=== PATIENT | female | born 1975 | race Caucasian/White ===

== ENCOUNTER 2017-03-03 22:36 | Observation (INO) | payer SELFPAY ==
[~2017-03-03] VITALS: Ht 162.6 cm; Wt 80.0 kg
[~2017-03-03 22:36] MED LIST: BACT800T5 PO; OMEP20TA PO; [UNRECOGNIZED DRUG - CODE] PO
[2017-03-03 22:38] VITALS: BP 216/101; PULSE 129; RESP 16; TEMP 98.7; O2SAT 100
[2017-03-03] MEDS ORDERED: SODIUM CHLORIDE 0.9% FLUSH 10 ML FLUSH IVF PRN (22:45)
--- NOTE | 2017-03-03 22:45 | PD ---
Physical Exam Date Seen by Provider: Mar 03, 2017 Time Seen by Provider: 22:42 Narrative 41 y/o female with chest pain radiating to shoulders and jaw for a few days to a week. Symptoms intermittent and lasts 10 minutes then goes away. Not related to exertion. Also feels jittery. Patient not eating, has been sweating alot and having diarrhea. Ran out of her Clonidine yesterday. Also feels jittery. Vital Signs reviewed. Patient is Stable and awaiting Bed Placement. Data Data Last Documented VS Vital Signs Date Time Temp Pulse Resp B/P (MAP) Pulse Ox O2 Delivery O2 Flow Rate FiO2 03/03/17 22:38 98.7 129 16 216/101 (139) 100 MDM Medical Record Reviewed: Yes Supervised Visit with VICKY: Yes Condition: Stable Jeremy Kang Mar 03, 2017 22:45
[2017-03-03] MEDS ORDERED: VIST50CA PO (22:59)
[2017-03-03] MEDS ORDERED: CLON0.2T PO (22:59)
[2017-03-03] MEDS ORDERED: SODIUM CHLOR 0.9% 1000 ML INJ 1,000 ML IV ONE (23:15)
--- NOTE | 2017-03-03 23:20 | RADRPT ---
EXAM DATE/TIME: 03/03/2017 22:49 [facility] COMPARISON: No previous studies available for comparison. INDICATIONS : Chest pain MEDICAL HISTORY : Hypertension. Gastroesophageal reflux disease. Renal calculi.Deep vein thrombosis. SURGICAL HISTORY : Cholecystectomy ENCOUNTER: Initial ACUITY: 2 days PAIN SCORE: 5/10 LOCATION: chest FINDINGS: A single view of the chest demonstrates the lungs to be symmetrically aerated without evidence of mas s, infiltrate or effusion. The cardiomediastinal contours are unremarkable. Osseous structures are intact. CONCLUSION: No acute disease. Juma Bautista MD on March 03, 2017 at 23:18 Board Certified Radiologist. This report was verified electronically.
[2017-03-03 23:25] LABS: AUTOMATED NEUTROPHIL # 7.4 TH/MM3 (1.8-7.7); BASOPHIL # 0.2 TH/MM3 (0-0.2); BASOPHIL % 1.4 % (0.0-2.0); EOSINOPHIL # 0.3 TH/MM3 (0-0.4); EOSINOPHIL % 2.2 % (0.0-4.0); HEMATOCRIT 31.4 % (35.0-46.0); HEMO FLAGS DIFF FINAL; LYMPH % 25.1 % (9.0-44.0); LYMPHOCYTE # 3.1 TH/MM3 (1.0-4.8); MEAN CELL VOLUME 67.5 FL (80.0-100.0); MEAN CORPUSCULAR HEMOGLOBIN 20.5 PG (27.0-34.0); MEAN CORPUSCULAR HGB CONC 30.4 % (32.0-36.0); MONO % 10.9 % (0.0-8.0); NEUT % 60.4 % (16.0-70.0); PLATELET COUNT 435 TH/MM3 (150-450); RED BLOOD COUNT 4.64 MIL/MM3 (4.00-5.30); RED CELL DISTRIBUTION WIDTH 18.4 % (11.6-17.2); WHITE BLOOD COUNT 12.2 TH/MM3 (4.0-11.0)
--- NOTE | 2017-03-03 23:38 | PD ---
HPI Chief Complaint: Chest Pain Time Seen by Provider: 22:55 Travel History International Travel<30 days: No Contact w/Intl Traveler<30days: No Traveled to known affect area: No History of Present Illness HPI Patient is a 41-year-old female with history of hypertension and anxiety, presents to emergency room with chest pain. Patient reports that she has been having epigastric pain feels a burning/pressure sensation which radiates to her left shoulder and her left jaw. Patient reports that her symptoms are associated with palpitations and shortness of breath and diaphoresis. Patient reports that symptoms have been on and off for the past week. Patient reports that when she has symptoms, symptoms last for about 10 minutes and then resolves on its own. Patient reports that she does have history of hypertension , she does take clonidine for this and has run out of her medications. Patient reports that she takes Vistaril for anxiety. Reports history of a blood clot in her leg past - reports that she was prescribed aspirin for this. Patient reports that she is not on any control at this time, no recent traveling or trips. Patient reports a strong family history of heart attacks, reports that her mother had an MS in her 30s, reports that her dad had a quadruple bypass in his 50s. Patient is a smoker. PFSH Past Medical History Arthritis: No Asthma: No Autoimmune Disease: No Blood Disorders: No Anxiety: Yes Depression: No Heart Rhythm Problems: No Cancer: No Cardiovascular Problems: Yes (htn only when in pain takes no meds) High Cholesterol: No Congestive Heart Failure: No COPD: No Cerebrovascular Accident: Yes (tia) Diabetes: No Diminished Hearing: No Endocrine: No Gastrointestinal Disorders: Yes (ulcers) GERD: Yes Genitourinary: Yes Headaches: Yes Hiatal Hernia: No Hypertension: Yes Immune Disorder: No Implanted Vascular Access Dvce: Yes Kidney Stones: Yes Musculoskeletal: Yes Neurologic: Yes Psychiatric: No Reproductive: No Respiratory: No Immunizations Current: Yes Migraines: Yes Renal Failure: No Seizures: No Sleep Apnea: No Thyroid Disease: No Ulcer: Yes Influenza Vaccination: No ?: Not LMP: 03/03/2017 Menopausal: No : 5 Para: 4 Miscarriage: 1 : 1 Dilation and Curettage (D&C): Yes Past Surgical History AICD: No Arteriovenous Shunt: No Body Medical Devices: IUD Cardiac Surgery: No Cholecystectomy: Yes Ear Surgery: No Endocrine Surgery: No Eye Surgery: No Genitourinary Surgery: No Gynecologic Surgery: No Joint Replacement: No Neurologic Surgery: Yes (brain bleed) Oral Surgery: No Pacemaker: No Thoracic Surgery: No Other Surgery: Yes ( lithotripsy) Social History Alcohol Use: No Tobacco Use: Yes (07/17 PPD) Substance Use: No Allergies-Medications (Allergen,Severity, Reaction): Coded Allergies: etodolac (Unverified Allergy, Unknown, CHEST PAIN, 03/03/17) acetaminophen (Unverified Adverse Reaction, Intermediate, nausea, 03/03/17) amlodipine (Unverified Adverse Reaction, Intermediate, CHEST PAIN, 03/03/17 ) diclofenac (Unverified Adverse Reaction, Intermediate, Chest Pain, 03/03/17 ) propoxyphene (Unverified Adverse Reaction, Intermediate, nausea, 03/03/17) *MDRO Multi-Drug Resistant Organism (Verified Adverse Reaction, Unknown, ) 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 Reported Meds & Prescriptions Reported Meds & Active Scripts Active Reported Vistaril (Hydroxyzine Pamoate) 50 Mg Cap 100 Mg PO BID Clonidine (Clonidine HCl) 0.2 Mg Tab 0.2 Mg PO BID Omeprazole 20 Mg Tab 20 Mg PO DAILY Review of Systems General / Constitutional: No: Fever Eyes: No: Visual changes HENT: No: Headaches Cardiovascular: Positive: Chest Pain or Discomfort, Palpitations, Tachycardia Respiratory: Positive: Shortness of Breath Gastrointestinal: No: Abdominal Pain Genitourinary: No: Dysuria Musculoskeletal: No: Pain Skin: No Rash Neurologic: No: Weakness Psychiatric: No: Depression Endocrine: No: Polydipsia Hematologic/Lymphatic: No: Easy Bruising Physical Exam Narrative GENERAL: Mild distress SKIN: Focused skin assessment warm/dry. HEAD: Atraumatic. Normocephalic. EYES: Pupils equal and round. No scleral icterus. No injection or drainage. ENT: No nasal bleeding or discharge. Mucous membranes pink and moist. NECK: Trachea midline. No JVD. CARDIOVASCULAR: Tachycardic. No murmur appreciated. RESPIRATORY: No accessory muscle use. Clear to auscultation. Breath sounds equal bilaterally. GASTROINTESTINAL: Abdomen soft, non-tender, nondistended. Hepatic and splenic margins not palpable. MUSCULOSKELETAL: No obvious deformities. No clubbing. No cyanosis. No edema. NEUROLOGICAL: Awake and alert. No obvious cranial nerve deficits. Motor grossly within normal limits. Normal speech. PSYCHIATRIC: Appropriate mood and affect; insight and judgment normal. Data Data Last Documented VS Vital Signs Date Time Temp Pulse Resp B/P (MAP) Pulse Ox O2 Delivery O2 Flow Rate FiO2 03/04/17 00:43 95 18 161/74 (103) 98 03/03/17 22:38 98.7 Orders Orders Electrocardiogram (03/03/17 22:45) Ckmb (Isoenzyme) Profile (03/03/17 22:45) Complete Blood Count With Diff (03/03/17 22:45) Comprehensive Metabolic Panel (03/03/17 22:45) Magnesium (Mg) (03/03/17 22:45) Prothrombin Time / Inr (Pt) (03/03/17 22:45) Act Partial Throm Time (Ptt) (03/03/17 22:45) Troponin I (03/03/17 22:45) Lipase (03/03/17 22:45) Chest, Single Ap (03/03/17 22:45) Ecg Monitoring (03/03/17 22:45) Iv Access Insert/Monitor (03/03/17 22:45) Oximetry (03/03/17 22:45) Sodium Chloride 0.9% Flush (Ns Flush) (03/03/17 22:45) Ed Urine Pregnancytest Poc (03/03/17 22:45) Thyroid Stimulating Hormone (03/03/17 23:15) Drug Screen, Random Urine (03/03/17 23:15) Ct Pulmonary Angiogram (03/03/17 23:15) Sodium Chlor 0.9% 1000 Ml Inj (Ns 1000 M (03/03/17 23:15) Nitroglycerin Sl (Nitrostat Sl) (03/03/17 23:45) CKMB (03/03/17 23:05) CKMB% (03/03/17 23:05) Lorazepam Inj (Ativan Inj) (03/04/17 00:45) Iohexol 350 Inj (Omnipaque 350 Inj) (03/04/17 00:58) Admit Order (Ed Use Only) (03/04/17 02:49) Labs Laboratory Tests Test 03/03/17 23:05 White Blood Count 12.2 TH/MM3 Red Blood Count 4.64 MIL/MM3 Hemoglobin 9.5 GM/DL Hematocrit 31.4 % Mean Corpuscular Volume 67.5 FL Mean Corpuscular Hemoglobin 20.5 PG Mean Corpuscular Hemoglobin Concent 30.4 % Red Cell Distribution Width 18.4 % Platelet Count 435 TH/MM3 Mean Platelet Volume 8.5 FL Neutrophils (%) (Auto) 60.4 % Lymphocytes (%) (Auto) 25.1 % Monocytes (%) (Auto) 10.9 % Eosinophils (%) (Auto) 2.2 % Basophils (%) (Auto) 1.4 % Neutrophils # (Auto) 7.4 TH/MM3 Lymphocytes # (Auto) 3.1 TH/MM3 Monocytes # (Auto) 1.3 TH/MM3 Eosinophils # (Auto) 0.3 TH/MM3 Basophils # (Auto) 0.2 TH/MM3 CBC Comment DIFF FINAL Differential Comment Prothrombin Time 11.1 SEC Prothromb Time International Ratio 1.0 RATIO Activated Partial Thromboplast Time 26.3 SEC Blood Urea Nitrogen 12 MG/DL Creatinine 0.73 MG/DL Random Glucose 90 MG/DL Total Protein 8.6 GM/DL Albumin 4.0 GM/DL Calcium Level 9.1 MG/DL Magnesium Level 2.3 MG/DL Alkaline Phosphatase 90 U/L Aspartate Amino Transf (AST/SGOT) 69 U/L Alanine Aminotransferase (ALT/SGPT) 68 U/L Total Bilirubin 0.5 MG/DL Sodium Level 142 MEQ/L Potassium Level 4.4 MEQ/L Chloride Level 113 MEQ/L Carbon Dioxide Level 21.7 MEQ/L Anion Gap 7 MEQ/L Estimat Glomerular Filtration Rate 87 ML/MIN Total Creatine Kinase 219 U/L Creatine Kinase MB 1.2 NG/ML Creatine Kinase MB % 0.5 % Troponin I LESS THAN 0.02 NG/ML Lipase 131 U/L Thyroid Stimulating Hormone 3rd Gen 0.076 uIU/ML MDM Medical Decision Making Medical Screen Exam Complete: Yes Emergency Medical Condition: Yes Interpretation(s) EKG at 2001: Sinus tachycardia at 111bpm, nonspecific ST changes Vital Signs Date Time Temp Pulse Resp B/P (MAP) Pulse Ox O2 Delivery O2 Flow Rate FiO2 03/03/17 22:38 98.7 129 16 216/101 (139) 100 Differential Diagnosis Differential includes PE, ACS, arrhythmia, electrolyte abnormality, hyperthyroidism, pneumothorax Narrative Course 41-year-old female who presents to emergency room complaints of chest pain. She was placed on a cardiac tech upon arrival to emergency room, she is tachycardic. Lab work including x-ray of chest and cardiac enzymes ordered. Will administer some nitroglycerin to see if this helps with her chest pain. IV fluids ordered. PE study ordered to rule out pulmonary emboli as she has reported history of DVT in the past and patient is tachycardic with heart rate of 111 in the emergency room. Vital Signs Date Time Temp Pulse Resp B/P (MAP) Pulse Ox O2 Delivery O2 Flow Rate FiO2 03/04/17 00:43 95 18 161/74 (103) 98 03/03/17 22:38 98.7 129 16 216/101 (139) 100 Laboratory Tests Test 03/03/17 23:05 White Blood Count 12.2 TH/MM3 (4.0-11.0) Red Blood Count 4.64 MIL/MM3 (4.00-5.30) Hemoglobin 9.5 GM/DL (11.6-15.3) Hematocrit 31.4 % (35.0-46.0) Mean Corpuscular Volume 67.5 FL (80.0-100.0) Mean Corpuscular Hemoglobin 20.5 PG (27.0-34.0) Mean Corpuscular Hemoglobin Concent 30.4 % (32.0-36.0) Red Cell Distribution Width 18.4 % (11.6-17.2) Platelet Count 435 TH/MM3 (150-450) Mean Platelet Volume 8.5 FL (7.0-11.0) Neutrophils (%) (Auto) 60.4 % (16.0-70.0) Lymphocytes (%) (Auto) 25.1 % (9.0-44.0) Monocytes (%) (Auto) 10.9 % (0.0-8.0) Eosinophils (%) (Auto) 2.2 % (0.0-4.0) Basophils (%) (Auto) 1.4 % (0.0-2.0) Neutrophils # (Auto) 7.4 TH/MM3 (1.8-7.7) Lymphocytes # (Auto) 3.1 TH/MM3 (1.0-4.8) Monocytes # (Auto) 1.3 TH/MM3 (0-0.9) Eosinophils # (Auto) 0.3 TH/MM3 (0-0.4) Basophils # (Auto) 0.2 TH/MM3 (0-0.2) CBC Comment DIFF FINAL Differential Comment Prothrombin Time 11.1 SEC (9.8-11.6) Prothromb Time International Ratio 1.0 RATIO Activated Partial Thromboplast Time 26.3 SEC (24.3-30.1) Blood Urea Nitrogen 12 MG/DL (7-18) Creatinine 0.73 MG/DL (0.50-1.00) Random Glucose 90 MG/DL (74-106) Total Protein 8.6 GM/DL (6.4-8.2) Albumin 4.0 GM/DL (3.4-5.0) Calcium Level 9.1 MG/DL (8.5-10.1) Magnesium Level 2.3 MG/DL (1.5-2.5) Alkaline Phosphatase 90 U/L (45-117) Aspartate Amino Transf (AST/SGOT) 69 U/L (15-37) Alanine Aminotransferase (ALT/SGPT) 68 U/L (10-53) Total Bilirubin 0.5 MG/DL (0.2-1.0) Sodium Level 142 MEQ/L (136-145) Potassium Level 4.4 MEQ/L (3.5-5.1) Chloride Level 113 MEQ/L (98-107) Carbon Dioxide Level 21.7 MEQ/L (21.0-32.0) Anion Gap 7 MEQ/L (5-15) Estimat Glomerular Filtration Rate 87 ML/MIN (>89) Total Creatine Kinase 219 U/L (26-192) Creatine Kinase MB 1.2 NG/ML (0.5-3.6) Creatine Kinase MB % 0.5 % (0.0-4.0) Troponin I LESS THAN 0.02 NG/ML Lipase 131 U/L (73-393) Thyroid Stimulating Hormone 3rd Gen 0.076 uIU/ML (0.358-3.740) Labs reviewed TSH 0.076 First set of troponins negative CT pulmonary angiogram: Negative PE, several small 4 mm or less nodules in the lung likely benign. I did review all incidental findings with patient, she understands need to follow-up with her thyroid studies with the primary care doctor. Patient also understands need to follow-up with the lung nodules. Patient is chest pain-free at this time. We'll admit to the chest pain unit. Diagnosis Primary Impression: Chest pain Additional Impressions: Abnormal TSH Pulmonary nodule Admitting Information Admitting Physician Requests: Observation Condition: Stable Latoya Davis DO Mar 03, 2017 23:38
[2017-03-03 23:50] LABS: APTT (PATIENT) 26.3 SEC (24.3-30.1); PROTHROMBIN TIME - PATIENT 11.1 SEC (9.8-11.6)
[2017-03-03] MEDS: NITROGLYCERIN 0.4 MG SL 25 TABS/BTL SL SCH ×2 (23:50→23:55)
[2017-03-04 00:07] LABS: ALKALINE PHOSPHATASE 90 U/L (45-117); ALT (GPT) 68 U/L (10-53); ANION GAP 7 MEQ/L (5-15); AST (GOT) 69 U/L (15-37); BICARBONATE 21.7 MEQ/L (21.0-32.0); BLOOD UREA NITROGEN 12 MG/DL (7-18); CHLORIDE 113 MEQ/L (98-107); CREATINE KINASE 219 U/L (26-192); GLOMERULAR FILTRATION RATE 87 ML/MIN (>89); MAGNESIUM 2.3 MG/DL (1.5-2.5); POTASSIUM 4.4 MEQ/L (3.5-5.1); SODIUM (NA) 142 MEQ/L (136-145); TOTAL BILIRUBIN ADULT 0.5 MG/DL (0.2-1.0)
[2017-03-04 00:20] LABS: CKMB 1.2 NG/ML (0.5-3.6)
[2017-03-04 00:43] VITALS: BP 161/74; PULSE 95; RESP 18; O2SAT 98
[2017-03-04] MEDS: NITROGLYCERIN 0.4 MG SL 25 TABS/BTL SL SCH (00:44)
[2017-03-04] MEDS ORDERED: LORazepam 2 MG/ML VIAL IV PUSH ONE (00:45)
[2017-03-04] MEDS ORDERED: IOHEXOL 350 MG/ML 10 ML VIAL (for RAD DIAG) IVCONTRAST ONE (00:58)
--- NOTE | 2017-03-04 01:32 | RADRPT ---
EXAM DATE/TIME: 03/04/2017 00:55 [facility] COMPARISON: No previous studies available for comparison. INDICATIONS : Chest pain with shortness of breath. Rule out pulmonary embolism. IV CONTRAST: 67 cc Omnipaque 350 (iohexol) IV RADIATION DOSE: 23.30 CTDIvol (mGy) MEDICAL HISTORY : Hypertension. Ulcers. Gastroesophageal reflux disease.DVT. SURGICAL HISTORY : Cholecystectomy. ENCOUNTER: Initial ACUITY: 2 days PAIN SCALE: 6/10 LOCATION: chest TECHNIQUE: Volumetric scanning of the chest was performed using a pulmonary embolism protocol MIP images were re constructed. Using automated exposure control and adjustment of the mA and/or kV according to patien t size, radiation dose was kept as low as reasonably achievable to obtain optimal diagnostic quality images. DICOM format image data is available electronically for review and comparison. Follow-up recommendations for detected pulmonary nodules are based at a minimum on nodule size and pa tient risk factors according to Fleischner Society Guidelines. FINDINGS: No filling defects identified to suggest pulmonary embolic disease. No pleural or pericardial effusio n. No adenopathy There are small 3 mm nodules in the right middle lobe and right lower lobe which were present on prio r abdomen CT from November 2014. There is an additional 4 mm nodule in the right upper lobe, likely benign . Tiny 3 mm nodules are present left upper lobe and left lower lobe posteriorly. Atelectasis present in the dependent lungs. CONCLUSION: 1. Negative for pulmonary embolus. No effusions or adenopathy. 2. Several small 4 mm or less nodules in the lungs likely benign. Basilar nodules are stable compared with [address] Jay Taylor MD on March 04, 2017 at 1:23 Board Certified Radiologist. This report was verified electronically.
[2017-03-04 04:23] LABS: CREATINE KINASE 124 U/L (26-192)
[2017-03-04 04:36] LABS: CKMB 1.3 NG/ML (0.5-3.6)
[2017-03-04 04:37] VITALS: BP 195/93; PULSE 83; RESP 17; TEMP 98.4; O2SAT 100
[2017-03-04 05:54] LABS: CREATINE KINASE 117 U/L (26-192)
[2017-03-04 06:06] LABS: CKMB 1.2 NG/ML (0.5-3.6)
[2017-03-04] MEDS ORDERED: NITROGLYCERIN 0.4 MG SL 25 TABS/BTL SL PRN (07:30)
[2017-03-04] MEDS ORDERED: ONDANSETRON HCL 4 MG/2 ML VIAL IV PRN (07:30)
[2017-03-04] MEDS ORDERED: ACETAMINOPHEN 500 MG CPLT PO PRN (07:30)
[2017-03-04] MEDS ORDERED: cloNIDine HCL 0.2 MG TAB PO PRN (07:30)
[2017-03-04 08:00] VITALS: BP 146/74; PULSE 86; RESP 18; TEMP 98.1; O2SAT 98
[2017-03-04 08:09] VITALS: O2SAT 98
[2017-03-04 08:10] VITALS: PULSE 50
[2017-03-04] MEDS ORDERED: SODIUM CHLORIDE 0.9% FLUSH 10 ML FLUSH IV FLUSH SCH (09:00)
--- NOTE | 2017-03-04 09:14 | HHI.HP ---
HPI Primary Care Physician No Primary Care Physician Chief Complaint Chest pain History of Present Illness 41-year-old female with history of hypertension, anxiety, and current smoker presents to emergency room for further evaluation of chest pain. Onset 3 days ago. Location substernal. Characterized as burning with radiation to bilateral shoulders left-sided jaw. Pain comes on quickly. Duration 20 seconds to a few minutes. Precipitating factor she relates to diabetes disorder. Relieving factors laying down or relaxing. Associated symptoms included nausea. Denied vomiting, diaphoresis, or shortness of breath. Hurt to take a deep breath. Yesterday episode not more severe than other episodes but accompanied with bilateral hand shaking, therefore came to ER for further evaluation. Review of Systems General: No fatigue,weakness, fever, chills, or recent illness. Increased stress over the past 2 weeks. HEENT: Mild headache yesterday that has since resolved. No vision changes, no nasal congestion or drainage, denies post nasal drip CV: As stated above, no current CP, pressure, or burning. Occasionally feels palpitations relating this to anxiety. RESP: No SOB, cough, wheeze, hemoptysis, recent URI, or history of asthma GI: Loose stools x 4 days, no melena or bloody stools. No nausea, vomiting, pain , or distention. Poor appetite last 4-5 days, although state today feels hungry. : No dysuria, urgency, frequency, frequent UTIs, or hematuria. Reports history of kidney stone DOCTOR'S ASSISTANT: Currently on menses. Denies chance of . Report IUD in place x 19 years. States she knows she should have IUD removed. EXT: No lower leg edema, no paraesthesias MS: No discomfort or change in ROM NEURO: No difficulty with balance, LOC, motor/sensory deficits PSYCH: Current situational stress and reports increasing anxiety last 2 weeks. History of anxiety stating normally anxiety controlled with Vistaril, but Vistaril no longer working. No depression or suicidal ideation. 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 Past Medical History Hypertension, anxiety, gastric ulcer, upper GI bleed, DVT (behind right knee reports treated with aspirin) Past Surgical History Cholecystectomy, lithotripsy Reported Medications Active Reported Vistaril (Hydroxyzine Pamoate) 50 Mg Cap 100 Mg PO BID Clonidine (Clonidine HCl) 0.2 Mg Tab 0.2 Mg PO BID (Reports trying to "wean" herself off from clonidine and taking one clonidine daily for at least one week) Omeprazole 20 Mg Tab 20 Mg PO DAILY Active Ordered Medications Current Medications Medications (Trade) Dose Ordered Sig/Sandhya Route Start Time Stop Time Status Last Admin (NS Flush) 2 ml UNSCH PRN IVF 03/03/17 22:45 (NS Flush) 2 ml BID IV FLUSH 03/04/17 09:00 (Tylenol) 500 mg Q4H PRN PO 03/04/17 07:30 (Zofran Inj) 4 mg Q6H PRN IV 03/04/17 07:30 (Nitrostat Sl) 0.4 mg Q5M PRN SL 03/04/17 07:30 (Catapres) 0.2 mg Q6H PRN PO 03/04/17 07:30 Family History Mother-HTN, CABG x3 mid 40s. Father-HTN, Cabgx4 mid 40s. Social History Known hypertension (reports she cannot take metoprolol, amlodipine, lisinopril, and others bp medications she cannot remember). No known diabetes or hyperlipidemia. Currently smokes 2 cigarettes daily. Denies any alcohol or illegal drug use. Currently unemployed, helps with her 4 children and multiple grandchildren. Past Cardiac Testing 10/20/2015 CT coronaries-severity limited study. Calcium score less 10. 10/23/2015 Lexiscan-Global hypokineses, EF 44%. No reversible perfusion defect. Physical Exam Vital Signs Vital Signs Date Time Temp Pulse Resp B/P (MAP) Pulse Ox O2 Delivery O2 Flow Rate FiO2 03/04/17 08:09 98 21 03/04/17 04:37 98.4 83 17 195/93 (127) 100 03/04/17 04:20 03/04/17 00:43 95 18 161/74 (103) 98 03/03/17 22:38 98.7 129 16 216/101 (139) 100 Physical Exam GENERAL: Alert WN, WD, NAD, pleasant female HEAD: NC, AT EYES: Sclera clear, conjunctiva without injection, pupils equal and round ENT: Mucous membranes pink and moist, no nasal discharge or bleeding NECK: Supple, no masses, trachea midline CV: RRR, without murmur, rub, gallop, no JVD, S1-S2 no S3-S4. No carotid bruits. RESP: Clear lungs throughout bilateral, no crackles, wheeze, rhonchi, symmetrical chest rise, nonlabored, able to speak in full sentences ABD: Soft, NT, ND, no masses, positive bowel tones BACK: No CVAT, no scoliosis EXT: Pulses +24, no dependent edema MS: Normal tone 4 extremities, nontender, no obvious deformities, full range of motion NEURO: CN II through CN XII grossly intact, motor strength 5/5, gait WNL PSYCH: A+O 3, pleasant affect, appropriate speech, appropriate mood and affect , insight and judgment SKIN: Normal turgor, normal texture, no lesions, no rashes, brisk cap refill, even hair distribution Laboratory Laboratory Tests Test 03/03/17 23:05 03/04/17 02:54 03/04/17 05:09 White Blood Count 12.2 Red Blood Count 4.64 Hemoglobin 9.5 Hematocrit 31.4 Mean Corpuscular Volume 67.5 Mean Corpuscular Hemoglobin 20.5 Mean Corpuscular Hemoglobin Concent 30.4 Red Cell Distribution Width 18.4 Platelet Count 435 Mean Platelet Volume 8.5 Neutrophils (%) (Auto) 60.4 Lymphocytes (%) (Auto) 25.1 Monocytes (%) (Auto) 10.9 Eosinophils (%) (Auto) 2.2 Basophils (%) (Auto) 1.4 Neutrophils # (Auto) 7.4 Lymphocytes # (Auto) 3.1 Monocytes # (Auto) 1.3 Eosinophils # (Auto) 0.3 Basophils # (Auto) 0.2 CBC Comment DIFF FINAL Differential Comment Prothrombin Time 11.1 Prothromb Time International Ratio 1.0 Activated Partial Thromboplast Time 26.3 Blood Urea Nitrogen 12 Creatinine 0.73 Random Glucose 90 Total Protein 8.6 Albumin 4.0 Calcium Level 9.1 Magnesium Level 2.3 Alkaline Phosphatase 90 Aspartate Amino Transf (AST/SGOT) 69 Alanine Aminotransferase (ALT/SGPT) 68 Total Bilirubin 0.5 Sodium Level 142 Potassium Level 4.4 Chloride Level 113 Carbon Dioxide Level 21.7 Anion Gap 7 Estimat Glomerular Filtration Rate 87 Total Creatine Kinase 219 124 117 Creatine Kinase MB 1.2 1.3 1.2 Creatine Kinase MB % 0.5 Troponin I LESS THAN 0.02 LESS THAN 0.02 LESS THAN 0.02 Lipase 131 Thyroid Stimulating Hormone 3rd Gen 0.076 Result Diagram: 03/03/17230403/03/172304 Imaging CT pulmonary read by radiologist Conclusion 1. Negative for pulmonary embolus. No effusion or adenopathy. 2. Several small 4 mm or less nodules in the lungs likely benign. Basilar nodules are stable compared with [address] Chest xray read by radiologist Conclusion 1. No acute disease. Course EKG NSR, criteria for LVH Caprini VTE Risk Assessment Caprini VTE Risk Assessment: No/Low Risk (score <= 1) Caprini Risk Assessment Model Point Value = 1 Point Value = 2 Point Value = 3 Point Value = 5 Age 41-60 Minor surgery BMI > 25 kg/m2 Swollen legs Varicose veins or History of unexplained or recurrent spontaneous Oral contraceptives or hormone replacement Sepsis (< 1 month) Serious lung disease, including pneumonia (< 1 month) Abnormal pulmonary function Acute myocardial infarction Congestive heart failure (< 1 month) History of inflammatory bowel disease Medical patient at bed rest Age 61-74 Arthroscopic surgery Major open surgery (> 45 min) Laparoscopic surgery (> 45 min) Malignancy Confined to bed (> 72 hours) Immobilizing plaster cast Central venous access Age >= 75 History of VTE Family history of VTE Factor V Leiden Prothrombin [id number] Lupus anticoagulant Anticardiolipin antibodies Elevated serum homocysteine Heparin-induced thrombocytopenia Other congenital or acquired thrombophilia Stroke (< 1 month) Elective arthroplasty Hip, pelvis, or leg fracture Acute spinal cord injury (< 1 month) Prophylaxis Regimen Total Risk Factor Score Risk Level Prophylaxis Regimen 0-1 Low Early ambulation 2 Moderate Order ONE of the following: *Sequential Compression Device (SCD) *Heparin 5000 units SQ BID 3-4 Higher Order ONE of the following medications: *Heparin 5000 units SQ TID *Enoxaparin/Lovenox 40 mg SQ daily (WT < 150 kg, CrCl > 30 mL/min) *Enoxaparin/Lovenox 30 mg SQ daily (WT < 150 kg, CrCl > 10-29 mL/min) *Enoxaparin/Lovenox 30 mg SQ BID (WT < 150 kg, CrCl > 30 mL/min) AND/OR *Sequential Compression Device (SCD) 5 or more Highest Order ONE of the following medications: *Heparin 5000 units SQ TID (Preferred with Epidurals) *Enoxaparin/Lovenox 40 mg SQ daily (WT < 150 kg, CrCl > 30 mL/min) *Enoxaparin/Lovenox 30 mg SQ daily (WT < 150 kg, CrCl > 10-29 mL/min) *Enoxaparin/Lovenox 30 mg SQ BID (WT < 150 kg, CrCl > 30 mL/min) AND *Sequential Compression Device (SCD) Assessment and Plan Assessment and Plan #1 Atypical chest pain-admitted to chest pain center. Ruled out with 3 sets of EKGs, cardiac enzymes, and monitored overnight. Seen and evaluated by Dr. Della Quick. No further cardiac testing required as patient had recent Lexiscan October 2015. Chest discomfort most likely related to anxiety and elevated blood pressure. #2 Anxiety- encouraged her to establish with a PCP to discuss worsening anxiety. Discussed importance of eating a well balanced diet, getting plenty of sleep, and daily activity. #3 Hypertension-educated on importance of tight blood pressure control. Patient repots intolerance to any medication other than clonidine. Stating unable to take other medications for blood pressure. Instructed to use clonidine every 8 hours and not to skip doses to avoid rebound blood pressure. Discussed in length clonidine is not blood pressure medication recommended, however patient reports intolerance of multiple blood pressure classifications. Will provide prescription clonidine with one year refill. Instructed on following a low sodium diet. Strongly encouraged her to establish with a PCP. Offered [facility] and assistance with a "blue card" however patient reports she dose not have a form of identification therefore cannot be a patient there and another other PCP office. Discuss in length importance of getting a form of identification. Education provided on current low EF noted on last Lexiscan result most likely related to uncontrolled hypertension. Patient reports she started a beta elualia in the past for low EF, but cannot tolerate beta blockers so she quit taking them. #4 TSH-notified of low TSH level and importance for follow up lab testing #5 Tobacco use-strongly encouraged and stressed the importance of tobacco sensation. Encouraged patient to quit smoking. #6 Anemia-previously diagnosed with iron deficiency anemia and instructed to take iron supplements. Reports stopping iron supplements due to constipation and upset stomach, therefore reports eating a diet high in iron. Methods to prevent constipation and nausea when taking iron supplements provided. Declines restarting iron supplementations and would prefer to continue eating foods high in iron. Recommended follow up with a PCP. Strongly encouraged to follow up with a DOCTOR'S ASSISTANT for removal of IUD. Deedee Moreira Mar 04, 2017 09:14
[2017-03-04] MEDS ORDERED: CLON0.2T PO (09:40)
--- NOTE | 2017-03-04 09:41 | HHI.DCPOC ---
Discharge Care Plan Diagnosis: (1) Atypical chest pain (2) Hypertension (3) Anxiety Goals to Promote Your Health * To prevent worsening of your condition and complications * To maintain your health at the optimal level Directions to Meet Your Goals Take your medications as prescribed Follow your dietary instruction Follow activity as directed Keep your appointments as scheduled Take your immunizations and boosters as scheduled If your symptoms worsen call your PCP, if no PCP go to Urgent Care Center or Emergency Room Smoking is Dangerous to Your Health. Avoid second hand smoke Call the 24-hour hour crisis hotline for domestic abuse at Deedee Moreira Mar 04, 2017 09:41
--- NOTE | 2017-03-04 16:38 | EKG ---
Date Performed: 03/04/2017 Time Performed: 05:53:46 PTAGE: 41 years EKG: Sinus rhythm MODERATE VOLTAGE CRITERIA FOR LVH, CONSIDER NORMAL VARIANT BORDERLINE ECG Since PREVIOUS TRACING , no significant change noted PREVIOUS TRACIN10/20/2015 05.05 DOCTOR: Della Quick Interpretating Date/Time 03/04/2017 16:37:24
--- NOTE | 2017-03-04 16:38 | EKG ---
Date Performed: 03/03/2017 Time Performed: 23:02:16 PTAGE: 41 years EKG: SINUS TACHYCARDIA MODERATE VOLTAGE CRITERIA FOR LVH, CONSIDER NORMAL VARIANT MODERATE ST DE PRESSION ABNORMAL ECG Since previous tracing, no significant change noted NO PREVIOUS TRACING DOCTOR: Della Qucik Interpretating Date/Time 03/04/2017 16:36:55
--- NOTE | 2017-03-04 16:38 | EKG ---
Date Performed: 03/04/2017 Time Performed: 02:56:48 PTAGE: 41 years EKG: Sinus rhythm MODERATE VOLTAGE CRITERIA FOR LVH, CONSIDER NORMAL VARIANT BORDERLINE ECG Since PREVIOUS TRACING , no significant change noted PREVIOUS TRACIN10/20/2015 05.05 DOCTOR: Della Quick Interpretating Date/Time 03/04/2017 16:37:08
== END 2017-03-04 12:15 | disposition home or self-care (01) ==
LOC: NEPC 22:36 → NEDA 03-04 02:50 → NEPGCP 03-04 04:34
PROVIDERS: ADMIT Internal Medicine Cardiovascular Disease; ATTEND Internal Medicine Cardiovascular Disease
DX: R07.9 Chest pain, unspecified (principal); J18.9 Pneumonia, unspecified organism; F41.9 Anxiety disorder, unspecified; I10 Essential (primary) hypertension; D64.9 Anemia, unspecified; R94.31 Abnormal electrocardiogram [ECG] [EKG]; K21.9 Gastro-esophageal reflux disease without esophagitis; R94.6 Abnormal results of thyroid function studies; F17.210 Nicotine dependence, cigarettes, uncomplicated; Z82.49 Family history of ischemic heart disease and other diseases of the circulatory system; Z86.718 Personal history of other venous thrombosis and embolism; Z86.73 Personal history of transient ischemic attack (TIA), and cerebral infarction without residual deficits; Z87.442 Personal history of urinary calculi
CPT/HCPCS: 71010; 71275; 80053; 82550; 82552; 83690; 83735; 84443; 84484; 84703; 85025; 85610; 85730; 93005; 96360; 99285; G0378; J2060; J7030; Q9967

== ENCOUNTER 2017-04-16 19:38 | Emergency (ER) | payer SELFPAY ==
[~2017-04-16] VITALS: Ht 160 cm; Wt 82.7 kg
[~2017-04-16 19:38] MED LIST changes: -BACT800T5 PO; +CLON0.2T PO; +VIST50CA PO; -[UNRECOGNIZED DRUG - CODE] PO
[2017-04-16 19:58] VITALS: BP 243/106; PULSE 120; RESP 16; TEMP 99.2; O2SAT 100
[2017-04-16] MEDS ORDERED: LORA-475 PO (20:27)
[2017-04-16] MEDS ORDERED: ZANT150T2 PO (20:27)
== END 2017-04-16 21:09 | disposition left against medical advice (07) ==
LOC: PHED 19:38
DX: Z53.21 Procedure and treatment not carried out due to patient leaving prior to being seen by health care provider (principal)
CPT/HCPCS: 99281

== ENCOUNTER 2017-05-18 23:23 | Emergency (ER) | payer SELFPAY ==
[~2017-05-18] VITALS: Ht 160 cm; Wt 84.1 kg
[~2017-05-18 23:23] MED LIST changes: +LORA-475 PO; -OMEP20TA PO; +ZANT150T2 PO
[2017-05-18 23:31] VITALS: BP 176/113; PULSE 134; RESP 20; TEMP 97.9; O2SAT 100
[2017-05-18 23:57] VITALS: BP 176/113; PULSE 134; RESP 18; TEMP 97.9; O2SAT 100
[2017-05-19 00:28] VITALS: RESP 16
[2017-05-19] MEDS ORDERED: SODIUM CHLORIDE 0.9% FLUSH 10 ML FLUSH IVF PRN (00:30)
[2017-05-19 00:46] LABS: BASOPHIL # 0.2 TH/MM3 (0-0.2); BASOPHIL % 1.1 % (0.0-2.0); EOSINOPHIL # 0.3 TH/MM3 (0-0.4); EOSINOPHIL % 1.7 % (0.0-4.0); LYMPH % 17.4 % (9.0-44.0); LYMPHOCYTE # 3.3 TH/MM3 (1.0-4.8); MEAN CELL VOLUME 64.9 FL (80.0-100.0); MEAN CORPUSCULAR HEMOGLOBIN 19.8 PG (27.0-34.0); MEAN CORPUSCULAR HGB CONC 30.5 % (32.0-36.0); MONO % 5.4 % (0.0-8.0); NEUT % 74.4 % (16.0-70.0); PLATELET COUNT 387 TH/MM3 (150-450); RED BLOOD COUNT 5.09 MIL/MM3 (4.00-5.30); RED CELL DISTRIBUTION WIDTH 18.5 % (11.6-17.2); WHITE BLOOD COUNT 18.8 TH/MM3 (4.0-11.0)
[2017-05-19 00:49] LABS: HEMO FLAGS AUTO DIFF
[2017-05-19 00:54] LABS: CHLORIDE 107 MEQ/L (98-107); POTASSIUM 3.6 MEQ/L (3.5-5.1); SODIUM (NA) 138 MEQ/L (136-145)
[2017-05-19 00:57] LABS: ANION GAP 9 MEQ/L (5-15); BICARBONATE 22.3 MEQ/L (21.0-32.0); BLOOD UREA NITROGEN 8 MG/DL (7-18); MAGNESIUM 1.8 MG/DL (1.5-2.5)
[2017-05-19 00:58] LABS: PROTHROMBIN TIME - PATIENT 10.7 SEC (9.8-11.6)
[2017-05-19 01:00] LABS: GLOMERULAR FILTRATION RATE 108 ML/MIN (>89)
[2017-05-19 01:03] LABS: OVALOCYTES 1+ (NORMAL); PLATELET ESTIMATE SMEAR NORMAL (NORMAL); SCAN/DIFF AUTO DIFF CONFIRMED; TARGET CELLS 1+ (NORMAL)
[2017-05-19 01:04] LABS: APTT (PATIENT) 21.2 SEC (24.3-30.1); PLATELET MORPHOLOGY NORMAL (NORMAL)
[2017-05-19 01:07] LABS: CREATINE KINASE 62 U/L (26-192)
[2017-05-19 01:15] VITALS: BP_SYST 150; BP_SYST 152; BP_DIAS 62; BP_DIAS 66; PULSE 101; RESP 18; TEMP 98; O2SAT 99
--- NOTE | 2017-05-19 01:30 | RADRPT ---
EXAM DATE/TIME: 05/19/2017 00:32 [facility] COMPARISON: CHEST SINGLE AP, March 03, 2017, 22:49. INDICATIONS : Shortness of breath. MEDICAL HISTORY : Hypertension. SURGICAL HISTORY : None. ENCOUNTER: Initial ACUITY: 1 day PAIN SCORE: 0/10 LOCATION: Bilateral chest FINDINGS: A single view of the chest demonstrates the lungs to be symmetrically aerated without evidence of mas s, infiltrate or effusion. The cardiomediastinal contours are unremarkable. The lungs are hypoinflat ed. Osseous structures are intact. CONCLUSION: 1. No acute cardiopulmonary disease. Brice Banegas MD on May 19, 2017 at 1:29 Board Certified Radiologist. This report was verified electronically.
--- NOTE | 2017-05-19 01:34 | PD ---
HPI Chief Complaint: Oral / Dental Pain or Problem Time Seen by Provider: 00:19 Travel History International Travel<30 days: No Contact w/Intl Traveler<30days: No Traveled to known affect area: No History of Present Illness HPI 41 year-old female presents to the emergency department complaining of right mandible pain. Patient states that she does not believe that she has a dental infection. Patient states pain has been present for several hours. Patient has taken no medications for symptoms. Patient denies fever or chills. Patient denies symptoms beginning while eating. Patient has multiple dental caries several missing teeth and multiple avulsed dentition. Patient complains of bone pain and sensation of soft tissue swelling underneath her mandible. Patient has no stridor or hoarseness. Patient denies injury. Patient rates her pain as 8/10 in intensity. Patient states that she has high blood pressure , tobacco use, tachycardia, and TIA. Patient is unable to identify exacerbating or alleviating factors. Patient denies chest pain or shortness of breath nausea or vomiting or sweats or referred neck back arm or abdominal pain. PFSH Past Medical History Narrative Medical Hypertension TIA tobacco use tachycardia; nursing notes reviewed Arthritis: No Asthma: No Autoimmune Disease: No Blood Disorders: No Anxiety: Yes Depression: No Heart Rhythm Problems: No Cancer: No Cardiovascular Problems: Yes (HTN, TACHYCARDIA) High Cholesterol: No Congestive Heart Failure: No COPD: No Cerebrovascular Accident: Yes (tia) Diabetes: No Diminished Hearing: No Endocrine: No Gastrointestinal Disorders: Yes (ulcers) GERD: Yes Genitourinary: Yes Headaches: Yes Hiatal Hernia: No Hypertension: Yes Immune Disorder: No Implanted Vascular Access Dvce: Yes Kidney Stones: Yes Musculoskeletal: Yes Neurologic: Yes Psychiatric: No Reproductive: No Respiratory: No Immunizations Current: Yes Migraines: Yes Renal Failure: No Seizures: No Sleep Apnea: No Thyroid Disease: No Ulcer: Yes Tetanus Vaccination: < 5 Years Influenza Vaccination: No ?: Not LMP: 2 WEEKS AGO Menopausal: No : 5 Para: 4 Miscarriage: 1 : 1 Dilation and Curettage (D&C): Yes Past Surgical History AICD: No Arteriovenous Shunt: No Body Medical Devices: IUD Cardiac Surgery: No Cholecystectomy: Yes Ear Surgery: No Endocrine Surgery: No Eye Surgery: No Genitourinary Surgery: No Gynecologic Surgery: No Joint Replacement: No Neurologic Surgery: Yes (brain bleed) Oral Surgery: No Pacemaker: No Thoracic Surgery: No Other Surgery: Yes ( lithotripsy) Social History Alcohol Use: No Tobacco Use: Yes (07/17 PPD) Substance Use: No Allergies-Medications (Allergen,Severity, Reaction): Coded Allergies: etodolac (Unverified Allergy, Unknown, CHEST PAIN, 05/18/17) acetaminophen (Unverified Adverse Reaction, Intermediate, nausea, 05/18/17) amlodipine (Unverified Adverse Reaction, Intermediate, CHEST PAIN, 05/18/17 ) diclofenac (Unverified Adverse Reaction, Intermediate, Chest Pain, 05/18/17 ) propoxyphene (Unverified Adverse Reaction, Intermediate, nausea, 05/18/17) *MDRO Multi-Drug Resistant Organism (Verified Adverse Reaction, Unknown, 05/18/17) 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 Reported Meds & Prescriptions Reported Meds & Active Scripts Active Clindamycin (Clindamycin HCl) 150 Mg Cap 300 Mg PO Q6H 7 Days Clonidine (Clonidine HCl) 0.2 Mg Tab 0.2 Mg PO Q8HR 30 Days Reported Zantac (Ranitidine HCl) 150 Mg Tab 150 Mg PO BID Ativan (Lorazepam) 2 Mg Tab 2 Mg PO BID Vistaril (Hydroxyzine Pamoate) 50 Mg Cap 100 Mg PO BID Review of Systems Except as stated in HPI: all other systems reviewed are Neg General / Constitutional: No: Fever, Chills HENT: Positive: Gingival Bleeding, Dental Difficulties, Earache, No: Congestion , Neck Pain Cardiovascular: No: Chest Pain or Discomfort, Diaphoresis Respiratory: No: Shortness of Breath Gastrointestinal: No: Nausea, Vomiting, Abdominal Pain Genitourinary: No: Dysuria, Flank Pain Musculoskeletal: No: Myalgias, Arthralgias Skin: No Rash Neurologic: No: Weakness, Dizziness, Syncope, Focal Abnormalities, Coordination Problem Psychiatric: No: Anxiety Hematologic/Lymphatic: No: Easy Bruising Physical Exam Narrative GENERAL: Well-developed well-nourished female in no respiratory distress. No stridor or hoarseness. SKIN: Warm and dry. HEAD: Normocephalic. EYES: No scleral icterus. No injection or drainage. ENT: Extensive dental caries with gingival edema without fluctuance on the right mandible distribution with tenderness to palpation and loose dentition. NECK: Supple, trachea midline. No JVD or lymphadenopathy. Right-sided submandibular and mandible tenderness to palpation without mass or fluctuance. Trachea is midline. CARDIOVASCULAR: Regular rate and rhythm without murmurs, gallops, or rubs. RESPIRATORY: Breath sounds equal bilaterally. No accessory muscle use. GASTROINTESTINAL: Abdomen soft, non-tender, nondistended. MUSCULOSKELETAL: No cyanosis, or edema. BACK: Nontender without obvious deformity. No CVA tenderness. Data Data Last Documented VS Vital Signs Date Time Temp Pulse Resp B/P (MAP) Pulse Ox O2 Delivery O2 Flow Rate FiO2 05/19/17 04:09 05/19/17 03:29 86 18 97 Room Air 05/19/17 01:15 98.0 Orders Orders Electrocardiogram (05/19/17 00:19) Basic Metabolic Panel (Bmp) (05/19/17 00:19) Ckmb (Isoenzyme) Profile (05/19/17:19) Complete Blood Count With Diff (05/19/17:) Magnesium (Mg) (05/19/17:) Prothrombin Time / Inr (Pt) (05/19/17:19) Act Partial Throm Time (Ptt) (05/19/17 00:19) Troponin I (05/19/17:) Chest, Single Ap (05/19/17:19) Ecg Monitoring (05/19/17 00:19) Bilateral Bp Monitoring (05/19/17 00:19) Iv Access Insert/Monitor (05/19/17 00:19) Oximetry (05/19/17 00:19) Oxygen Administration (05/19/17 00:19) Sodium Chloride 0.9% Flush (Ns Flush) (05/19/17 00:30) Nitroglycerin Sl (Nitrostat Sl) (05/19/17 00:30) Sodium Chlor 0.9% 1000 Ml Inj (Ns 1000 M (05/19/17 01:45) Blood Culture (05/19/17 01:34) Ct Soft Tiss Neck W Iv Cont (05/19/17 ) Ketorolac Inj (Toradol Inj) (05/19/17 01:45) Clindamycin Inj (Cleocin Inj) (05/19/17 02:15) Iohexol 350 Inj (Omnipaque 350 Inj) (05/19/17 02:21) Acetamin-Hydrocod 325-5 Mg ([place] 5-325 (05/19/17 03:45) Urinalysis - C+S If Indicated (05/19/17 03:39) Labs Laboratory Tests Test 05/19/17 00:05 05/19/17 03:48 White Blood Count 18.8 TH/MM3 Red Blood Count 5.09 MIL/MM3 Hemoglobin 10.1 GM/DL Hematocrit 33.0 % Mean Corpuscular Volume 64.9 FL Mean Corpuscular Hemoglobin 19.8 PG Mean Corpuscular Hemoglobin Concent 30.5 % Red Cell Distribution Width 18.5 % Platelet Count 387 TH/MM3 Mean Platelet Volume 8.5 FL Neutrophils (%) (Auto) 74.4 % Lymphocytes (%) (Auto) 17.4 % Monocytes (%) (Auto) 5.4 % Eosinophils (%) (Auto) 1.7 % Basophils (%) (Auto) 1.1 % Neutrophils # (Auto) 14.0 TH/MM3 Lymphocytes # (Auto) 3.3 TH/MM3 Monocytes # (Auto) 1.0 TH/MM3 Eosinophils # (Auto) 0.3 TH/MM3 Basophils # (Auto) 0.2 TH/MM3 CBC Comment AUTO DIFF Differential Comment AUTO DIFF CONFIRMED Platelet Estimate NORMAL Platelet Morphology Comment NORMAL Target Cells 1+ Ovalocytes 1+ Prothrombin Time 10.7 SEC Prothromb Time International Ratio 1.0 RATIO Activated Partial Thromboplast Time 21.2 SEC Blood Urea Nitrogen 8 MG/DL Creatinine 0.61 MG/DL Random Glucose 107 MG/DL Calcium Level 8.9 MG/DL Magnesium Level 1.8 MG/DL Sodium Level 138 MEQ/L Potassium Level 3.6 MEQ/L Chloride Level 107 MEQ/L Carbon Dioxide Level 22.3 MEQ/L Anion Gap 9 MEQ/L Estimat Glomerular Filtration Rate 108 ML/MIN Total Creatine Kinase 62 U/L Troponin I LESS THAN 0.02 NG/ML Urine Color YELLOW Urine Turbidity SLIGHT Urine pH 6.5 Urine Specific [place] GREATER THAN 1.035 Urine Protein TRACE mg/dL Urine Glucose (UA) NEG mg/dL Urine Ketones NEG mg/dL Urine Occult Blood TRACE Urine Nitrite NEG Urine Bilirubin NEG Urine Leukocyte Esterase NEG Urine RBC 15-19 /hpf Urine WBC 0-2 /hpf Urine Squamous Epithelial Cells 0-5 /hpf Urine Amorphous Sediment SMALL Microscopic Urinalysis Comment CULT NOT INDICATED MDM Medical Decision Making Medical Screen Exam Complete: Yes Emergency Medical Condition: Yes Medical Record Reviewed: Yes Interpretation(s) Last Impressions Chest X-Ray 05/19/17 0019 Signed Impressions: Service Date/Time: Friday, May 19, 2017 00:32 - CONCLUSION: 1. No acute cardiopulmonary disease. Brice Banegas MD Neck CT 05/19/17 0000 Signed Impressions: Service Date/Time: Friday, May 19, 2017 02:01 - CONCLUSION: 1. There is no evidence of abscess. 2. Nonspecific cervical adenopathy Brice Banegas MD CBC & BMP Diagram 05/19/17 00:05 Calcium Level 8.9, Magnesium Level 1.8 Vital Signs Date Time Temp Pulse Resp B/P (MAP) Pulse Ox O2 Delivery O2 Flow Rate FiO2 05/19/17 03:29 86 18 131/69 (89) 97 Room Air 05/19/17 03:29 18 05/19/17 03:24 86 18 127/59 (81) 96 Room Air 05/19/17 03:19 77 18 133/70 (91) 99 Room Air 05/19/17 03:07 18 05/19/17 01:15 150/66 (94) 152/62 (92) 05/19/17 01:15 98.0 101 18 150/66 (94) 99 Room Air 05/19/17 00:28 16 Room Air 05/19/17 00:28 98 Room Air 05/18/17 23:57 97.9 134 18 176/113 (134) 100 05/18/17 23:31 97.9 134 20 176/113 (134) 100 Differential Diagnosis Dentalgia infected dental caries and dental abscess apical abscess submandibular abscess osteomyelitis recurrent tachycardia Narrative Course patient placed on shelter monitor noted to have tachycardia history of hypertension with tachycardia EKG ordered along with IV access and pulse oximetry; specimens collected and sent for resulting Patient is noted to have white count of 18,000 in view of ongoing gingival/ mandible pain as well as submandibular pain CT soft tissue neck with contrast ordered CT scan does not show obvious abscess Patient's heart rate has normalized and blood pressure has improved after IV fluid hydration and Toradol patient continues however to complain of jaw pain. In view of patient's history of hypertension EKG was performed and showed no acute ST elevation or injury pattern change and cardiac enzymes were performed which were not elevated. Patient did receive a one-time dose of several nitroglycerin in view of her elevated blood pressure and states that had no effect on her jaw pain. Patient denies any chest pain. Patient has been evaluated recently for chest pain and was felt to have atypical noncardiac related chest pain. Patient Denies having any chest pain and states it's on her jaw Patient given one-time dose of Lortab for jaw pain. Patient's labs are otherwise within normal range. Patient is very concerned about her kidneys at this time has not been having any flank pain dysuria frequency urgency or hematuria but now is requesting to have urinalysis performed therefore urinalysis ordered. Plan would be to give patient and trial of outpatient antibiotic therapy with clindamycin for infected dentition and encouraged her to continue her chronic medications as chronically prescribed including her antianginal medications and her clonidine for blood pressure management. Patient is encouraged to follow-up with her primary care provider area did patient encouraged to return the emergency department for any concerns or change in condition. Patient is aware that she is waiting on her urinalysis results prior to being discharged. Patient aware of lab work CT results and at her request urine specimen had been collected; however, while waiting for urinalysis to result patient signed out AMA and did not take her prescriptions for antibiotic. Sepsis Criteria SIRS Criteria (2 or more): Heart rate over 90, WBC > 45356, < 4000 or > 10% bands Sepsis Criteria (SIRS+source): Infect source susp/known (dental infection) Diagnosis Primary Impression: Infected dental caries Additional Impression: H/O sinus tachycardia Referrals: Dentist call for appointment Patient Instructions: General Instructions Additional Instructions: Increase fluid hydration Take Tylenol as needed for fever 100.4F or greater as tolerated Complete course of antibiotic Follow-up with dentist Return to the emergency department for any concerns or change in condition [place] continue chronic medications as chronically prescribed Scripts Clindamycin (Clindamycin) 150 Mg Cap 300 MG PO Q6H for Infection for 7 Days, #56 CAP 0 Refills Prov: Pat Banegas MD 05/19/17 Disposition: 07 AGAINST MEDICAL ADVICE Condition: Stable Pat Banegas MD May 19, 2017 01:34
[2017-05-19] MEDS ORDERED: CLINDAMYCIN 900 MG PREMIX 50 ML IV ONE (01:45)
[2017-05-19] MEDS ORDERED: SODIUM CHLOR 0.9% 1000 ML INJ 1,000 ML IV ONE (01:45)
[2017-05-19] MEDS ORDERED: KETOROLAC TROMETHAMINE 30 MG/ML (IVP) VIAL IV PUSH ONE (01:45)
[2017-05-19] MEDS ORDERED: CLINDAMYCIN INJ 900 MG in SODIUM CHLORIDE 0.9% INJ 100 ML IV ONE (02:15)
[2017-05-19] MEDS ORDERED: IOHEXOL 350 MG/ML 10 ML VIAL (for RAD DIAG) IVCONTRAST ONE (02:21)
--- NOTE | 2017-05-19 02:40 | RADRPT ---
EXAM DATE/TIME: 05/19/2017 02:01 [facility] COMPARISON: No previous studies available for comparison. INDICATIONS : Right lower jaw pain. Evaluate for abscess. IV CONTRAST: 100 cc Omnipaque 350 (iohexol) IV RADIATION DOSE: 14.40 CTDIvol (mGy) MEDICAL HISTORY : Cerebrovascular disease. Hypertension. SURGICAL HISTORY : None. ENCOUNTER: Initial ACUITY: 1 day PAIN SCALE: 10/10 LOCATION: Right lower jaw TECHNIQUE: Volumetric scanning of the neck was performed. Using automated exposure control and adjustment of th e mA and/or kV according to patient size, radiation dose was kept as low as reasonably achievable to obtain optimal diagnostic quality images. DICOM format image data is available electronically for r eview and comparison. FINDINGS: Examination of the skull base demonstrates no evidence of deep infiltrating mucosal lesion. The oroph arynx, hypopharynx, glottic and subglottic airway demonstrate no abnormality. There are multiple slig htly enlarged lymph nodes in submandibular space and group 2 bilaterally. The thyroid gland demonstra vince no abnormality. The lung apices demonstrate no abnormality. There is no evidence of abscess. CONCLUSION: 1. There is no evidence of abscess. 2. Nonspecific cervical adenopathy Brice Banegas MD on May 19, 2017 at 2:35 Board Certified Radiologist. This report was verified electronically.
[2017-05-19 03:19] VITALS: BP 133/70; PULSE 77; RESP 18; O2SAT 99
[2017-05-19] MEDS: NITROGLYCERIN 0.4 MG SL 25 TABS/BTL SL PRN ×2 (03:19→03:25)
[2017-05-19 03:24] VITALS: BP 127/59; PULSE 86; RESP 18; O2SAT 96
[2017-05-19 03:29] VITALS: BP 131/69; PULSE 86; RESP 18; O2SAT 97
[2017-05-19] MEDS ORDERED: ACETAMINOPHEN/HYDROcodone 325 MG/5 MG TAB PO ONE (03:45)
[2017-05-19] MEDS ORDERED: CLIN150C14 PO (03:48)
[2017-05-19 03:54] LABS: BLOOD, URINE TRACE (NEG); GLUCOSE,URINE NEG (NEG); KETONE, URINE NEG (NEG); NITRITE,URINE NEG (NEG); PH, URINE 6.5 (5.0-8.5)
[2017-05-19 04:13] LABS: URINE COLOR YELLOW (YELLW/STRAW)
[2017-05-19 04:17] LABS: SQUAMOUS EPITHELIAL CELL URINE 0-5 /hpf (0-5)
[2017-05-19 04:18] LABS: WBC, URINE 0-2 /hpf (0-5)
[2017-05-19 04:19] LABS: COMMENT (UR) CULT NOT INDICATED; CULTURE IF INDICATED CULT NOT INDICATED; RBC, URINE 15-19 /hpf (0-3)
--- NOTE | 2017-05-19 08:18 | EKG ---
Date Performed: 05/19/2017 Time Performed: 00:30:30 PTAGE: 41 years EKG: SINUS TACHYCARDIA VOLTAGE CRITERIA FOR LVH ABNORMAL ECG PREVIOUS TRACING : 03/04/2017 05.53 No significant change from previous tracing noted. DOCTOR: Yvon Tomas Interpretating Date/Time 05/19/2017 08:17:51
== END 2017-05-19 03:37 | disposition left against medical advice (07) ==
LOC: PHED 23:23
DX: K02.9 Dental caries, unspecified (principal); K04.7 Periapical abscess without sinus; D72.829 Elevated white blood cell count, unspecified; R94.31 Abnormal electrocardiogram [ECG] [EKG]; I10 Essential (primary) hypertension; F17.200 Nicotine dependence, unspecified, uncomplicated; Z53.20 Procedure and treatment not carried out because of patient's decision for unspecified reasons; Z86.79 Personal history of other diseases of the circulatory system; Z86.59 Personal history of other mental and behavioral disorders; Z87.19 Personal history of other diseases of the digestive system; Z87.448 Personal history of other diseases of urinary system; Z87.39 Personal history of other diseases of the musculoskeletal system and connective tissue; Z86.69 Personal history of other diseases of the nervous system and sense organs
CPT/HCPCS: 70491; 71010; 80048; 81001; 82550; 83735; 84484; 85025; 85610; 85730; 87040; 93005; 96365; 96375; 99285; J1885; J7030; Q9967

== ENCOUNTER 2017-07-05 19:29 | Emergency (ER) | payer SELFPAY ==
[~2017-07-05] VITALS: Ht 162.6 cm; Wt 86.6 kg
[~2017-07-05 19:29] MED LIST changes: +CLIN150C14 PO
[2017-07-05 19:40] VITALS: BP 205/101; PULSE 123; RESP 18; TEMP 98.3; O2SAT 99
[2017-07-05 19:51] VITALS: BP 234/103; PULSE 113; RESP 16; O2SAT 100
[2017-07-05 20:00] LABS: BILIRUBIN, URINE NEG (NEG); BLOOD, URINE SMALL (NEG); GLUCOSE,URINE NEG (NEG); KETONE, URINE NEG (NEG); NITRITE,URINE NEG (NEG); URINE LEUKOCYTE ESTERASE MOD (NEG)
[2017-07-05 20:03] LABS: URINE COLOR STRAW (YELLW/STRAW)
[2017-07-05 20:04] LABS: BACTERIA, URINE FEW /hpf; SQUAMOUS EPITHELIAL CELL URINE > 8 /hpf (0-5)
[2017-07-05] MEDS ORDERED: SODIUM CHLORIDE 0.9% FLUSH 10 ML FLUSH IVF PRN (20:15)
[2017-07-05] MEDS ORDERED: ONDANSETRON HCL 4 MG/2 ML VIAL IVP ONE (20:15)
[2017-07-05] MEDS ORDERED: KETOROLAC TROMETHAMINE 30 MG/ML (IVP) VIAL IVP ONE (20:15)
[2017-07-05] MEDS ORDERED: SODIUM CHLOR 0.9% 1000 ML INJ 1,000 ML IV ONE ×2 (20:15→21:30)
[2017-07-05] MEDS ORDERED: cefTRIAXone INJ 1,000 MG in SODIUM CHLORIDE 0.9% INJ 100 ML IV ONE (20:15)
[2017-07-05] MEDS ORDERED: HYDROmorphone HCL PF 2 MG/ML VIAL IM ONE (20:15)
[2017-07-05 20:21] VITALS: BP 200/95; PULSE 102; RESP 16; O2SAT 100
--- NOTE | 2017-07-05 20:32 | PD ---
HPI . Flank pain Chief Complaint: Flank/Kidney Pain Time Seen by Provider: 20:12 Travel History International Travel<30 days: No Contact w/Intl Traveler<30days: No Traveled to known affect area: No History of Present Illness HPI Patient presents with the chief complaint of left flank pain which started about lunchtime today. The pain has gotten progressively worse through the day. It has been unrelieved by Tylenol and BC powders. It is associated with nausea, chills and urinary frequency. She denies vomiting. She denies dysuria , urgency or hematuria. Pain is rated 9/10 with no modifying factors. She states that she has had numerous previous kidney stones and believes that she has another kidney stone tonight. PFSH Past Medical History Arthritis: No Asthma: No Autoimmune Disease: No Blood Disorders: No Anxiety: Yes Depression: No Heart Rhythm Problems: No Cancer: No Cardiovascular Problems: Yes (HTN, TACHYCARDIA) High Cholesterol: No Congestive Heart Failure: No COPD: No Cerebrovascular Accident: Yes (tia) Diabetes: No Diminished Hearing: No Endocrine: No Gastrointestinal Disorders: Yes (ulcers) GERD: Yes Genitourinary: Yes Headaches: Yes Hiatal Hernia: No Hypertension: Yes Immune Disorder: No Implanted Vascular Access Dvce: Yes Kidney Stones: Yes Musculoskeletal: Yes Neurologic: Yes Psychiatric: No Reproductive: No Respiratory: No Immunizations Current: Yes Migraines: Yes Renal Failure: No Seizures: No Sleep Apnea: No Thyroid Disease: No Ulcer: Yes Influenza Vaccination: No ?: Not LMP: 07/03/2017 Menopausal: No : 5 Para: 4 Miscarriage: 1 : 1 Dilation and Curettage (D&C): Yes Past Surgical History AICD: No Arteriovenous Shunt: No Body Medical Devices: IUD Cardiac Surgery: No Cholecystectomy: Yes Ear Surgery: No Endocrine Surgery: No Eye Surgery: No Genitourinary Surgery: No Gynecologic Surgery: No Joint Replacement: No Neurologic Surgery: Yes (brain bleed) Oral Surgery: No Pacemaker: No Thoracic Surgery: No Other Surgery: Yes ( lithotripsy) Social History Alcohol Use: No Tobacco Use: Yes (07/17 PPD) Substance Use: No Allergies-Medications (Allergen,Severity, Reaction): Coded Allergies: etodolac (Unverified Allergy, Unknown, CHEST PAIN, 05/18/17) acetaminophen (Unverified Adverse Reaction, Intermediate, nausea, 05/18/17) amlodipine (Unverified Adverse Reaction, Intermediate, CHEST PAIN, 05/18/17 ) diclofenac (Unverified Adverse Reaction, Intermediate, Chest Pain, 05/18/17 ) propoxyphene (Unverified Adverse Reaction, Intermediate, nausea, 05/18/17) *MDRO Multi-Drug Resistant Organism (Verified Adverse Reaction, Unknown, 05/18/17) 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 Reported Meds & Prescriptions Reported Meds & Active Scripts Active Clindamycin (Clindamycin HCl) 150 Mg Cap 300 Mg PO Q6H 7 Days Clonidine (Clonidine HCl) 0.2 Mg Tab 0.2 Mg PO Q8HR 30 Days Reported Zantac (Ranitidine HCl) 150 Mg Tab 150 Mg PO BID Ativan (Lorazepam) 2 Mg Tab 2 Mg PO BID Vistaril (Hydroxyzine Pamoate) 50 Mg Cap 100 Mg PO BID Review of Systems Except as stated in HPI: all other systems reviewed are Neg General / Constitutional: Positive: Chills Gastrointestinal: Positive: Nausea, Abdominal Pain, No: Vomiting Genitourinary: Positive: Frequency, Flank Pain, No: Urgency, Dysuria, Hematuria Physical Exam Narrative GENERAL: Awake and alert and in no acute distress. SKIN: warm/dry. Good color. HEAD: Normocephalic. Atraumatic. EYES: Pupils equal and round. No scleral icterus. No injection or drainage. ENT: No nasal bleeding or discharge. Mucous membranes pink and moist. NECK: Trachea midline. Full range of motion without pain.. CARDIOVASCULAR: Regular rate and rhythm. Heart sounds normal. RESPIRATORY: No accessory muscle use. Clear to auscultation. Breath sounds equal bilaterally. GASTROINTESTINAL: Abdomen soft. Nontender. Bowel sounds present. Nondistended. : Mild left CVA tenderness. MUSCULOSKELETAL: No obvious deformities. NEUROLOGICAL: Awake and alert. No obvious cranial nerve deficits. Motor grossly within normal limits. Normal speech. PSYCHIATRIC: Appropriate mood and affect; insight and judgment normal. Data Data Last Documented VS Vital Signs Date Time Temp Pulse Resp B/P (MAP) Pulse Ox O2 Delivery O2 Flow Rate FiO2 07/05/17 21:39 90 16 187/90 (122) 100 Room Air 07/05/17 19:40 98.3 Orders Orders Urinalysis - C+S If Indicated (07/05/17 19:51) Ed Urine Pregnancytest Poc (07/05/17 19:53) Urine Culture (07/05/17 19:57) Basic Metabolic Panel (Bmp) (07/05/17 20:12) Complete Blood Count With Diff (07/05/17 20:12) Ct Abd/Pel W/O Iv Contrast (07/05/17 20:12) Iv Access Insert/Monitor (07/05/17 20:12) Ketorolac Inj (Toradol Inj) (07/05/17 20:15) Ondansetron Inj (Zofran Inj) (07/05/17 20:15) Sodium Chloride 0.9% Flush (Ns Flush) (07/05/17 20:15) Hydromorphone Pf Inj (Dilaudid Pf Inj) (07/05/17 20:15) Ceftriaxone Inj (Rocephin Inj) (07/05/17 20:15) Sodium Chlor 0.9% 1000 Ml Inj (Ns 1000 M (07/05/17 20:15) Hydromorphone Pf Inj (Dilaudid Pf Inj) (07/05/17 21:00) Sodium Chlor 0.9% 1000 Ml Inj (Ns 1000 M (07/05/17 21:30) Lactic Acid (07/05/17 21:16) Labs Laboratory Tests Test 07/05/17 19:57 07/05/17 20:10 07/05/17 21:25 Urine Color STRAW Urine Turbidity SLIGHT Urine pH 6.0 Urine Specific [place] 1.021 Urine Protein NEG mg/dL Urine Glucose (UA) NEG mg/dL Urine Ketones NEG mg/dL Urine Occult Blood SMALL Urine Nitrite NEG Urine Bilirubin NEG Urine Leukocyte Esterase MOD Urine RBC 3-5 /hpf Urine WBC 25-49 /hpf Urine Squamous Epithelial Cells > 8 /hpf Urine Bacteria FEW /hpf Microscopic Urinalysis Comment CULTURE INDICATED White Blood Count 11.7 TH/MM3 Red Blood Count 4.87 MIL/MM3 Hemoglobin 9.1 GM/DL Hematocrit 31.0 % Mean Corpuscular Volume 63.6 FL Mean Corpuscular Hemoglobin 18.7 PG Mean Corpuscular Hemoglobin Concent 29.4 % Red Cell Distribution Width 19.3 % Platelet Count 451 TH/MM3 Mean Platelet Volume 8.6 FL Neutrophils (%) (Auto) 62.6 % Lymphocytes (%) (Auto) 25.9 % Monocytes (%) (Auto) 7.6 % Eosinophils (%) (Auto) 3.3 % Basophils (%) (Auto) 0.6 % Neutrophils # (Auto) 7.3 TH/MM3 Lymphocytes # (Auto) 3.0 TH/MM3 Monocytes # (Auto) 0.9 TH/MM3 Eosinophils # (Auto) 0.4 TH/MM3 Basophils # (Auto) 0.1 TH/MM3 CBC Comment AUTO DIFF Differential Comment AUTO DIFF CONFIRMED Platelet Estimate HIGH Platelet Morphology Comment NORMAL Ovalocytes 1+ Blood Urea Nitrogen 7 MG/DL Creatinine 0.63 MG/DL Random Glucose 99 MG/DL Calcium Level 8.8 MG/DL Sodium Level 140 MEQ/L Potassium Level 3.9 MEQ/L Chloride Level 108 MEQ/L Carbon Dioxide Level 23.9 MEQ/L Anion Gap 8 MEQ/L Estimat Glomerular Filtration Rate 104 ML/MIN Lactic Acid Level 1.1 mmol/L MDM Medical Decision Making Medical Screen Exam Complete: Yes Emergency Medical Condition: Yes Medical Record Reviewed: Yes (her CTs of the abdomen and pelvis dating back to last several years has shown renal stones but no ureteral stones or hydronephrosis. The past several times that she has been here with similar complaints, she has been treated for a urinary tract infection.) Differential Diagnosis Differential diagnosis of flank pain includes but is not limited to kidney stone , pyelonephritis, musculoskeletal pain, PE Narrative Course This patient presents with acute left flank pain. She will be treated with IV fluids, IV Dilaudid, IV Toradol and IV Zofran pending her workup. CT is pending. UA>>small blood, mod LE, 25-49 WBCs and few bact Rocephin has subsequently been ordered. CBC & BMP Diagram 07/05/17 20:[address] abd/pelvis: 6 mm x 4 mm calculus in the distal left ureter proximal least 2 cm from the ureterovesical junction. Mild diffuse left periureteral stranding. No evidence of hydroureter or hydronephrosis. 2 mm calculus in the upper pole of the left kidney. 2 mm calculus in the midpole of the right kidney. I have added a lactic acid to her workup. She is to receive 2 L of IV fluids. LA 1.1. HR now about 90. She is stable for treatment as an OP. She will need referral to urology. Sepsis Criteria SIRS Criteria (2 or more): Heart rate over 90, WBC > 28736, < 4000 or > 10% bands Sepsis Criteria (SIRS+source): Infect source susp/known Diagnosis Primary Impression: Left flank pain Additional Impressions: Urinary tract infection Qualified Codes: N30.00 - Acute cystitis without hematuria Kidney stone Referrals: Melany Mendoza MD Patient Instructions: General Instructions, Narcotic given in the ED, Urinary Tract Infection in Women (DC) Med/Other Pt SpecificInfo: Prescription(s) given Scripts Cephalexin (Keflex) 500 Mg Cap 500 MG PO Q8H for Infection, #30 CAP 0 Refills Prov: Laurie Devlin MD 07/05/17 Tamsulosin (Flomax) 0.4 Mg Cap 0.4 MG PO HS for Manage Prostate Problems, #30 CAP 0 Refills Prov: Laurie Devlin MD 07/05/17 Promethazine (Phenergan) 25 Mg Tablet 25 MG PO Q6H Y for NAUSEA OR VOMITING, #12 TAB 0 Refills Prov: Laurie Devlin MD 07/05/17 Oxycodone-Acetaminophen (Percocet) 5-325 mg Tab 1 TAB PO Q4H Y for PAIN, #12 TAB 0 Refills Prov: Laurie Devlin MD 07/05/17 Disposition: 01 DISCHARGE HOME Condition: Stable Laurie Devlin MD Jul 05, 2017 20:32
[2017-07-05 20:47] LABS: AUTOMATED NEUTROPHIL # 7.3 TH/MM3 (1.8-7.7); BASOPHIL # 0.1 TH/MM3 (0-0.2); BASOPHIL % 0.6 % (0.0-2.0); EOSINOPHIL # 0.4 TH/MM3 (0-0.4); EOSINOPHIL % 3.3 % (0.0-4.0); HEMOGLOBIN 9.1 GM/DL (11.6-15.3); LYMPH % 25.9 % (9.0-44.0); MEAN CELL VOLUME 63.6 FL (80.0-100.0); MEAN CORPUSCULAR HEMOGLOBIN 18.7 PG (27.0-34.0); MEAN CORPUSCULAR HGB CONC 29.4 % (32.0-36.0); MEAN PLATELET VOLUME 8.6 FL (7.0-11.0); MONO % 7.6 % (0.0-8.0); MONOCYTE # 0.9 TH/MM3 (0-0.9); NEUT % 62.6 % (16.0-70.0); PLATELET COUNT 451 TH/MM3 (150-450); RED BLOOD COUNT 4.87 MIL/MM3 (4.00-5.30); RED CELL DISTRIBUTION WIDTH 19.3 % (11.6-17.2); WHITE BLOOD COUNT 11.7 TH/MM3 (4.0-11.0)
[2017-07-05 20:56] LABS: CALCIUM 8.8 MG/DL (8.5-10.1)
[2017-07-05 20:57] LABS: BICARBONATE 23.9 MEQ/L (21.0-32.0)
[2017-07-05 20:59] LABS: OVALOCYTES 1+ (NORMAL)
[2017-07-05 21:00] LABS: CREATININE 0.63 MG/DL (0.50-1.00)
[2017-07-05] MEDS ORDERED: HYDROmorphone HCL PF 2 MG/ML VIAL IV PUSH ONE (21:00)
--- NOTE | 2017-07-05 21:07 | RADRPT ---
EXAM DATE/TIME: 07/05/2017 20:30 [facility] COMPARISON: CT ABDOMEN & PELVIS W/O CONTRAST, June 21, 2016, 18:00. INDICATIONS : Left flank pain since noon today. History of renal calculi. ORAL CONTRAST: No oral contrast ingested. RADIATION DOSE: 23.68 CTDIvol (mGy) MEDICAL HISTORY : Renal calculi. Hypertension. SURGICAL HISTORY : Cholecystectomy. ENCOUNTER: Initial ACUITY: 1 day PAIN SCALE: 9/10 LOCATION: Left flank TECHNIQUE: Volumetric scanning of the abdomen and pelvis was performed. Using automated exposure control and ad justment of the mA and/or kV according to patient size, radiation dose was kept as low as reasonably achievable to obtain optimal diagnostic quality images. DICOM format image data is available electro nically for review and comparison. FINDINGS: LOWER LUNGS: The visualized lower lungs are clear. LIVER: Homogeneous density without lesion. There is no dilation of the biliary tree. Status post cholecyste ctomy. SPLEEN: Normal size without lesion. PANCREAS: Within normal limits. KIDNEYS: 6 mm x 4 mm calculus in the distal left ureter proximal least 2 cm from the ureterovesical junction. Mild diffuse left periureteral stranding. No evidence of hydroureter or hydronephrosis. 2 mm calculus in the upper pole of the left kidney. 2 mm calculus in the midpole of the right kidney. ADRENAL GLANDS: Within normal limits. VASCULAR: There is no aortic aneurysm. BOWEL/MESENTERY: Scattered colonic diverticula. No evidence of acute diverticulitis. Appendix within normal limits. No bowel dilatation. No free air or free fluid. ABDOMINAL WALL: Within normal limits. RETROPERITONEUM: There is no lymphadenopathy. BLADDER: No wall thickening or mass. REPRODUCTIVE: IUD in place in the uterus. INGUINAL: There is no lymphadenopathy or hernia. MUSCULOSKELETAL: Within normal limits for patient age. CONCLUSION: 1. 6 x 4 mm distal ureteral calculus. This calculus was previously seen in the left ureter. Punctate bilateral renal calculi also seen. No evidence hydronephrosis. Diffuse mild left-sided periureteral s tranding. 2. IUD in uterus. 3. Colonic diverticulosis. No evidence of acute diverticulitis. Jim De Paz MD on July 05, 2017 at 21:01 Board Certified Radiologist. This report was verified electronically.
[2017-07-05 21:39] VITALS: BP 187/90; PULSE 90; RESP 16; O2SAT 10; O2SAT 100
[2017-07-05] MEDS ORDERED: PROM25TA10 PO (22:13)
[2017-07-05] MEDS ORDERED: TAMS5CAP PO (22:13)
[2017-07-05] MEDS ORDERED: CEPH-460 PO (22:13)
[2017-07-05] MEDS ORDERED: PERC5TAB12 PO (22:13)
[2017-07-05 22:43] VITALS: BP 182/76; PULSE 86; RESP 16; O2SAT 100
[2017-07-05] MEDS ORDERED: oxyCODONE/ACETAMINOPHEN 10 MG/325 MG TAB PO ONE (22:45)
== END 2017-07-05 22:46 | disposition home or self-care (01) ==
LOC: PHED 19:29
DX: N39.0 Urinary tract infection, site not specified (principal); N20.0 Calculus of kidney; K57.30 Diverticulosis of large intestine without perforation or abscess without bleeding; F41.9 Anxiety disorder, unspecified; I10 Essential (primary) hypertension; K21.9 Gastro-esophageal reflux disease without esophagitis; Z86.73 Personal history of transient ischemic attack (TIA), and cerebral infarction without residual deficits; Z87.442 Personal history of urinary calculi
CPT/HCPCS: 74176; 80048; 81001; 83605; 84703; 85025; 87086; 96365; 96375; 99285; J0696; J1170; J1885; J2405; J7030

== ENCOUNTER 2017-07-08 17:49 | Emergency (ER) | payer SELFPAY ==
[~2017-07-08] VITALS: Ht 162.6 cm; Wt 85.6 kg
[~2017-07-08 17:49] MED LIST changes: +CEPH-460 PO; +PERC5TAB12 PO; +PROM25TA10 PO; +TAMS5CAP PO
[2017-07-08 18:05] VITALS: BP 202/89; PULSE 119; RESP 16; TEMP 98.6; O2SAT 100
[2017-07-08] MEDS ORDERED: SODIUM CHLOR 0.9% 1000 ML INJ 1,000 ML IV SCH (18:49)
[2017-07-08] MEDS ORDERED: SODIUM CHLORIDE 0.9% FLUSH 10 ML FLUSH IV FLUSH PRN (19:00)
[2017-07-08 19:05] LABS: BILIRUBIN, URINE NEG (NEG); BLOOD, URINE NEG (NEG); GLUCOSE,URINE NEG (NEG); KETONE, URINE NEG (NEG); NITRITE,URINE NEG (NEG); URINE LEUKOCYTE ESTERASE SMALL (NEG)
[2017-07-08 19:15] LABS: URINE COLOR YELLOW (YELLW/STRAW)
[2017-07-08 19:16] LABS: MUCUS URINE MOD /lpf (OCC)
[2017-07-08 19:17] LABS: SQUAMOUS EPITHELIAL CELL URINE 0-5 /hpf (0-5); WHITE BLOOD CELL CLUMPS OCC
[2017-07-08 19:18] LABS: BACTERIA, URINE OCC /hpf
[2017-07-08 19:45] LABS: CALCIUM 8.9 MG/DL (8.5-10.1)
[2017-07-08] MEDS ORDERED: ONDANSETRON HCL 4 MG/2 ML VIAL IV PUSH ONE (19:45)
[2017-07-08] MEDS ORDERED: MORPHINE SULFATE 4 MG/ML INJ IV PUSH ONE (19:45)
[2017-07-08 19:46] LABS: BICARBONATE 24.3 MEQ/L (21.0-32.0)
[2017-07-08 19:49] VITALS: BP 191/96; PULSE 87; RESP 20; TEMP 98.1; O2SAT 99
[2017-07-08 19:49] LABS: CREATININE 0.56 MG/DL (0.50-1.00)
[2017-07-08] MEDS ORDERED: cefTRIAXone INJ 1,000 MG in SODIUM CHLORIDE 0.9% INJ 100 ML IV ONE (20:00)
--- NOTE | 2017-07-08 20:01 | PD ---
HPI Chief Complaint: Flank/Kidney Pain Time Seen by Provider: 18:53 Travel History International Travel<30 days: No Contact w/Intl Traveler<30days: No Traveled to known affect area: No History of Present Illness HPI Patient is a 41-year-old female presents to emergency room with complaints of left sided flank pain. Patient reports that she was seen in the hospital on July 05, 2017 for similar symptoms. At that time, patient was diagnosed with a 6 x 4 mm distal ureteral calculus. There is no evidence of hydronephrosis at the time. Patient was also diagnosed with acute cystitis. At discharge, patient was discharged with a prescription for pain medication as well as Keflex and Flomax. Patient reports that she was unable to fill her prescription for the Keflex as well as Flomax, she did fill a prescription for Percocet. Patient reports that she continues to have pain to her right flank. Denies fever/chills. She was told to return to ER if symptoms did not improve. Patient has not follow-up with the urologist yet as she does not have insurance for follow-up [facility] Past Medical History Arthritis: No Asthma: No Autoimmune Disease: No Blood Disorders: No Anxiety: Yes Depression: No Heart Rhythm Problems: No Cancer: No Cardiovascular Problems: Yes (htn on meds) High Cholesterol: No Congestive Heart Failure: No COPD: No Cerebrovascular Accident: Yes (tia) Diabetes: No Diminished Hearing: No Endocrine: No Gastrointestinal Disorders: Yes (ulcers) GERD: Yes Genitourinary: Yes Headaches: Yes Hiatal Hernia: No Hypertension: Yes Immune Disorder: No Implanted Vascular Access Dvce: Yes Kidney Stones: Yes Musculoskeletal: Yes Neurologic: Yes Psychiatric: No Reproductive: No Respiratory: No Immunizations Current: Yes Migraines: Yes Renal Failure: No Seizures: No Sleep Apnea: No Thyroid Disease: No Ulcer: Yes ?: Not LMP: 06/20/17 Menopausal: No : 5 Para: 4 Miscarriage: 1 : 1 Dilation and Curettage (D&C): Yes Past Surgical History AICD: No Arteriovenous Shunt: No Body Medical Devices: IUD Cardiac Surgery: No Cholecystectomy: Yes Ear Surgery: No Endocrine Surgery: No Eye Surgery: No Genitourinary Surgery: No Gynecologic Surgery: No Joint Replacement: No Neurologic Surgery: Yes (brain bleed) Oral Surgery: No Pacemaker: No Thoracic Surgery: No Other Surgery: Yes ( lithotripsy) Social History Alcohol Use: No Tobacco Use: Yes (07/17 PPD) Substance Use: No Allergies-Medications (Allergen,Severity, Reaction): Coded Allergies: etodolac (Unverified Allergy, Unknown, CHEST PAIN, 07/08/17) acetaminophen (Unverified Adverse Reaction, Intermediate, nausea, 07/08/17 ) amlodipine (Unverified Adverse Reaction, Intermediate, CHEST PAIN, ) diclofenac (Unverified Adverse Reaction, Intermediate, Chest Pain, ) propoxyphene (Unverified Adverse Reaction, Intermediate, nausea, 07/08/17) *MDRO Multi-Drug Resistant Organism (Verified Adverse Reaction, Unknown, 07/08/17) 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 Reported Meds & Prescriptions Reported Meds & Active Scripts Active Percocet (Oxycodone-Acetaminophen) 5-325 mg Tab 1 Tab PO Q6H PRN Bactrim DS (Sulfamethoxazole-Trimethoprim) 800-160 Mg Tab 1 Tab PO BID Keflex (Cephalexin) 500 Mg Cap 500 Mg PO Q8H Flomax (Tamsulosin HCl) 0.4 Mg Cap 0.4 Mg PO HS Phenergan (Promethazine HCl) 25 Mg Tablet 25 Mg PO Q6H PRN Percocet (Oxycodone-Acetaminophen) 5-325 mg Tab 1 Tab PO Q4H PRN Clindamycin (Clindamycin HCl) 150 Mg Cap 300 Mg PO Q6H 7 Days Clonidine (Clonidine HCl) 0.2 Mg Tab 0.2 Mg PO Q8HR 30 Days Reported Zantac (Ranitidine HCl) 150 Mg Tab 150 Mg PO BID Ativan (Lorazepam) 2 Mg Tab 2 Mg PO BID Vistaril (Hydroxyzine Pamoate) 50 Mg Cap 100 Mg PO BID Review of Systems General / Constitutional: No: Fever, Chills Eyes: No: Visual changes HENT: No: Headaches Cardiovascular: No: Chest Pain or Discomfort Respiratory: No: Shortness of Breath Gastrointestinal: No: Nausea, Vomiting, Abdominal Pain Genitourinary: Positive: Flank Pain, No: Dysuria Musculoskeletal: No: Pain Skin: No Rash Neurologic: No: Weakness Psychiatric: No: Depression Endocrine: No: Polydipsia Hematologic/Lymphatic: No: Easy Bruising Physical Exam Narrative GENERAL: Moderate distress SKIN: Focused skin assessment warm/dry. HEAD: Atraumatic. Normocephalic. EYES: Pupils equal and round. No scleral icterus. No injection or drainage. ENT: No nasal bleeding or discharge. Mucous membranes pink and moist. NECK: Trachea midline. No JVD. CARDIOVASCULAR: Regular rate and rhythm. No murmur appreciated. RESPIRATORY: No accessory muscle use. Clear to auscultation. Breath sounds equal bilaterally. GASTROINTESTINAL: Abdomen soft, non-tender, nondistended. Hepatic and splenic margins not palpable. MUSCULOSKELETAL: No obvious deformities. No clubbing. No cyanosis. No edema. Patient with left-sided flank pain on exam NEUROLOGICAL: Awake and alert. No obvious cranial nerve deficits. Motor grossly within normal limits. Normal speech. PSYCHIATRIC: Appropriate mood and affect; insight and judgment normal. Data Data Last Documented VS Vital Signs Date Time Temp Pulse Resp B/P (MAP) Pulse Ox O2 Delivery O2 Flow Rate FiO2 07/08/17 19:49 98.1 87 20 191/96 (127) 99 Orders Orders Basic Metabolic Panel (Bmp) (07/08/17 18:49) Complete Blood Count With Diff (07/08/17 18:49) Urinalysis - C+S If Indicated (07/08/17 18:49) Iv Access Insert/Monitor (07/08/17 18:49) Sodium Chlor 0.9% 1000 Ml Inj (Ns 1000 M (07/08/17 18:49) Sodium Chloride 0.9% Flush (Ns Flush) (07/08/17 19:00) Ed Urine Pregnancytest Poc (07/08/17 18:49) Us Kidney/Renal/Bladder (07/08/17 ) Urine Culture (07/08/17 18:35) Morphine Inj (Morphine Inj) (07/08/17 19:45) Ondansetron Inj (Zofran Inj) (07/08/17 19:45) Ceftriaxone Inj (Rocephin Inj) (07/08/17 20:00) Oxycodone-Acetamin 5-325 Mg (Percocet (07/08/17 21:45) Mandatory Outpatient Referral (07/08/17 21:35) Labs Laboratory Tests Test 07/08/17 18:35 07/08/17 19:26 07/08/17 20:29 Urine Color YELLOW Urine Turbidity SLIGHT Urine pH 6.0 Urine Specific [place] 1.024 Urine Protein NEG mg/dL Urine Glucose (UA) NEG mg/dL Urine Ketones NEG mg/dL Urine Occult Blood NEG Urine Nitrite NEG Urine Bilirubin NEG Urine Leukocyte Esterase SMALL Urine WBC 25-49 /hpf Urine WBC Clumps OCC Urine Squamous Epithelial Cells 0-5 /hpf Urine Bacteria OCC /hpf Urine Mucus MOD /lpf Microscopic Urinalysis Comment CULTURE INDICATED Blood Urea Nitrogen 9 MG/DL Creatinine 0.56 MG/DL Random Glucose 109 MG/DL Calcium Level 8.9 MG/DL Sodium Level 138 MEQ/L Potassium Level 4.5 MEQ/L Chloride Level 107 MEQ/L Carbon Dioxide Level 24.3 MEQ/L Anion Gap 7 MEQ/L Estimat Glomerular Filtration Rate 119 ML/MIN White Blood Count 8.0 TH/MM3 Red Blood Count 4.03 MIL/MM3 Hemoglobin 7.9 GM/DL Hematocrit 26.0 % Mean Corpuscular Volume 64.6 FL Mean Corpuscular Hemoglobin 19.7 PG Mean Corpuscular Hemoglobin Concent 30.5 % Red Cell Distribution Width 19.4 % Platelet Count 316 TH/MM3 Mean Platelet Volume 8.2 FL CBC Comment AUTO DIFF MDM Medical Decision Making Medical Screen Exam Complete: Yes Emergency Medical Condition: Yes Medical Record Reviewed: Yes Interpretation(s) Vital Signs Date Time Temp Pulse Resp B/P (MAP) Pulse Ox O2 Delivery O2 Flow Rate FiO2 07/08/17 19:49 98.1 87 20 191/96 (127) 99 07/08/17 19:36 20 07/08/17 18:05 98.6 119 16 202/89 (126) 100 Differential Diagnosis Kidney stone, UTI, renal insufficiency, pyelonephritis Narrative Course During the course of the patients emergency department visit, the patients history, examination, and differential diagnosis were reviewed with the patient. The patient was placed on a customer care voice consultant with oximetry and frequent blood pressure monitoring. The patient had an IV access obtained and blood work sent for analysis. The patient was initially provided IVF as well as IV morphine for pain and IV rocephin for treatment of cystitis The patients laboratory studies were reviewed and remarkable for: CBC & BMP Diagram 07/08/17 19:26 Calcium Level 8.9 Radiology studies were reviewed and remarkable for: Last Impressions Renal Ultrasound 07/08/17 0000 Signed Impressions: Service Date/Time: Saturday, July 08, 2017 19:28 - CONCLUSION: Tiny nonobstructing stone of the right kidney. Otherwise negative renal ultrasound. Vince Yeung MD CBC & BMP Diagram 07/08/17 19:26 Calcium Level 8.9 07/08/17 20:29 Patient reevaluated, patient reports that she is feeling much better at this time. Plan to start patient on Bactrim as this is a free medication at [facility] for treatment of her uti. Renal ultrasound with tiny nonobstructing stones in the right kidney, there are no signs of hydronephrosis to left ureter A mandatory referral was placed for urology for 1 visit. Signs and symptoms of when to return to the ER was reviewed with patient in detail. She will return to ER as needed Diagnosis Primary Impression: Kidney stone on left side Additional Impressions: UTI (urinary tract infection) anemia Patient Instructions: General Instructions, Narcotic given in the ED Additional Instructions: Please provide patient with a copy of their lab work and studies at discharge* * Please follow up with your primary care doctor in 2-3 days Return to the ER if symptoms worsen or progress Return to the ER as needed Please follow-up with urologist Please strain your urine Please fill your script at [facility] as it will be given to you at no cost- please complete full course of antibiotics Med/Other Pt SpecificInfo: Prescription(s) given Scripts Oxycodone-Acetaminophen (Percocet) 5-325 mg Tab 1 TAB PO Q6H Y for PAIN, #12 TAB 0 Refills Prov: Latoya Davis DO 07/08/17 Sulfamethoxazole-Trimethoprim (Bactrim DS) 800-160 Mg Tab 1 TAB PO BID for Infection, #14 TAB 0 Refills Prov: Latoya Davis DO 07/08/17 Disposition: 01 DISCHARGE HOME Condition: Stable Latoya Davis DO Jul 08, 2017 20:01
--- NOTE | 2017-07-08 20:01 | RADRPT ---
EXAM DATE/TIME: 07/08/2017 19:28 [facility] COMPARISON: CT ABDOMEN & PELVIS W/O CONTRAST, June 21, 2016, 18:00. US KIDNEY/RENAL/BLADDER, May 09, 18:05. INDICATIONS : Flank pain. MEDICAL HISTORY : Stroke. Hypertension. Gastroesophageal reflux disease. Brain bleed. Chest pain. Ulcer. Kidney stones. Anxiety. MRSA. SURGICAL HISTORY : Cholecystectomy. Dilation and curettage. Lithotripsy. ENCOUNTER: Subsequent ACUITY: 1 week PAIN SCORE: 5/10 LOCATION: Bilateral flank MEASUREMENTS: RIGHT KIDNEY: 10.3 x 4.3 x 5.1 cm LEFT KIDNEY: 10.6 x 3.3 x 5.2 cm FINDINGS: RIGHT KIDNEY: 4 mm mid zone calculus. No hydronephrosis or mass demonstrated. LEFT KIDNEY: Renal cortex is normal in thickness and echotexture. No hydronephrosis, stone, or mass. BLADDER: Within normal limits given the degree of distension. CONCLUSION: Tiny nonobstructing stone of the right kidney. Otherwise negative renal ultrasound. Vince Yeung MD on July 08, 2017 at 19:58 Board Certified Radiologist. This report was verified electronically.
[2017-07-08 20:54] LABS: HEMOGLOBIN 7.9 GM/DL (11.6-15.3); MEAN CELL VOLUME 64.6 FL (80.0-100.0); MEAN CORPUSCULAR HEMOGLOBIN 19.7 PG (27.0-34.0); MEAN CORPUSCULAR HGB CONC 30.5 % (32.0-36.0); MEAN PLATELET VOLUME 8.2 FL (7.0-11.0); PLATELET COUNT 316 TH/MM3 (150-450); RED BLOOD COUNT 4.03 MIL/MM3 (4.00-5.30); RED CELL DISTRIBUTION WIDTH 19.4 % (11.6-17.2)
[2017-07-08 21:00] VITALS: BP 167/74; PULSE 74; RESP 20; O2SAT 98
[2017-07-08] MEDS ORDERED: BACT800T5 PO (21:35)
[2017-07-08] MEDS ORDERED: PERC5TAB12 PO (21:35)
[2017-07-08] MEDS ORDERED: oxyCODONE/ACETAMINOPHEN 5 MG/325 MG TAB PO ONE (21:45)
[2017-07-08 21:53] LABS: LYMPHOCYTES 21 % (9-44); MONOCYTES 5 % (0-8); NEUTROPHIL # MANUAL DIFF 5.8 TH/MM3 (1.8-7.7); POLYS (SEG NEUTROPHILS) 73 % (16-70)
[2017-07-08 21:55] LABS: OVALOCYTES 2+ (NORMAL); TEARDROP RBCS 1+ (NORMAL)
[2017-07-08 21:56] VITALS: BP 156/74
== END 2017-07-08 22:01 | disposition home or self-care (01) ==
LOC: PHED 17:49
DX: N20.0 Calculus of kidney (principal); N39.0 Urinary tract infection, site not specified; B96.89 Other specified bacterial agents as the cause of diseases classified elsewhere; D64.9 Anemia, unspecified; F41.9 Anxiety disorder, unspecified; I10 Essential (primary) hypertension; K21.9 Gastro-esophageal reflux disease without esophagitis; F17.200 Nicotine dependence, unspecified, uncomplicated; Z87.442 Personal history of urinary calculi
CPT/HCPCS: 76775; 80048; 81001; 84703; 85007; 85027; 87086; 96361; 96365; 96375; 99285; J0696; J2270; J2405; J7030

== ENCOUNTER 2017-08-08 16:49 | Emergency (ER) | payer SELFPAY ==
[~2017-08-08] VITALS: Ht 162.6 cm; Wt 85.0 kg
[~2017-08-08 16:49] MED LIST changes: +BACT800T5 PO
[2017-08-08 16:52] VITALS: BP 221/91; PULSE 116; RESP 14; TEMP 97.9; O2SAT 100
--- NOTE | 2017-08-08 17:28 | PD ---
HPI Chief Complaint: Flank/Kidney Pain Time Seen by Provider: 17:26 Travel History International Travel<30 days: No Contact w/Intl Traveler<30days: No Traveled to known affect area: No History of Present Illness HPI 41-year-old female with history of recurrent kidney stones, presents the emergency department with worsening left flank pain not relieved with 2 Percocet this morning. Patient states no fever, chills, positive nausea but no vomiting. No diarrhea. No dysuria. Patient has appointment with Dr. Lopez, the urologist on August 27, but couldn't wait after awakening with pain 10 over 10 this morning. She denies any other symptoms. She has multiple drug allergies please see list. PFSH Past Medical History Arthritis: No Asthma: No Autoimmune Disease: No Blood Disorders: No Anxiety: Yes Depression: No Heart Rhythm Problems: No Cancer: No Cardiovascular Problems: Yes (htn on meds) High Cholesterol: No Congestive Heart Failure: No COPD: No Cerebrovascular Accident: Yes (tia) Diabetes: No Diminished Hearing: No Endocrine: No Gastrointestinal Disorders: Yes (ulcers) GERD: Yes Genitourinary: Yes Headaches: Yes Hiatal Hernia: No Hypertension: Yes Immune Disorder: No Implanted Vascular Access Dvce: Yes Kidney Stones: Yes Musculoskeletal: Yes Neurologic: Yes Psychiatric: No Reproductive: No Respiratory: No Immunizations Current: Yes Migraines: Yes Renal Failure: No Seizures: No Sleep Apnea: No Thyroid Disease: No Ulcer: Yes ?: Not LMP: 08/01/17 Menopausal: No : 5 Para: 4 Miscarriage: 1 : 1 Dilation and Curettage (D&C): Yes Past Surgical History AICD: No Arteriovenous Shunt: No Body Medical Devices: IUD Cardiac Surgery: No Cholecystectomy: Yes Ear Surgery: No Endocrine Surgery: No Eye Surgery: No Genitourinary Surgery: No Gynecologic Surgery: No Joint Replacement: No Neurologic Surgery: Yes (brain bleed) Oral Surgery: No Pacemaker: No Thoracic Surgery: No Other Surgery: Yes ( lithotripsy) Social History Alcohol Use: No Tobacco Use: Yes (07/17 PPD) Substance Use: No Allergies-Medications (Allergen,Severity, Reaction): Coded Allergies: etodolac (Unverified Allergy, Unknown, CHEST PAIN, 07/08/17) acetaminophen (Unverified Adverse Reaction, Intermediate, nausea, 07/08/17 ) amlodipine (Unverified Adverse Reaction, Intermediate, CHEST PAIN, ) diclofenac (Unverified Adverse Reaction, Intermediate, Chest Pain, ) propoxyphene (Unverified Adverse Reaction, Intermediate, nausea, 07/08/17) *MDRO Multi-Drug Resistant Organism (Verified Adverse Reaction, Unknown, 07/08/17) 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 Reported Meds & Prescriptions Reported Meds & Active Scripts Active Flomax (Tamsulosin HCl) 0.4 Mg Cap 0.4 Mg PO HS Clonidine (Clonidine HCl) 0.2 Mg Tab 0.2 Mg PO Q8HR 30 Days Reported Zantac (Ranitidine HCl) 150 Mg Tab 150 Mg PO BID Ativan (Lorazepam) 2 Mg Tab 2 Mg PO BID Vistaril (Hydroxyzine Pamoate) 50 Mg Cap 100 Mg PO BID Review of Systems Except as stated in HPI: all other systems reviewed are Neg General / Constitutional: Positive: Chills, No: Fever Eyes: No: Visual changes HENT: No: Headaches Cardiovascular: No: Chest Pain or Discomfort Respiratory: No: Shortness of Breath Gastrointestinal: Positive: Nausea, No: Vomiting, Diarrhea, Abdominal Pain Genitourinary: Positive: Flank Pain, No: Urgency, Frequency, Dysuria, Hematuria Musculoskeletal: No: Pain Skin: No Rash Neurologic: No: Weakness Psychiatric: No: Depression Endocrine: No: Polydipsia Hematologic/Lymphatic: No: Easy Bruising Physical Exam Narrative GENERAL: Patient appears in mild to moderate distress. SKIN: Warm and dry. Normal color. Normal turgor. No rash. HEAD: Atraumatic. Normocephalic. EYES: Pupils equal and round. No scleral icterus. No injection or drainage. ENT: No nasal bleeding or discharge. Mucous membranes pink and moist. Pharynx is clear. Airway is patent. NECK: Trachea midline. Supple. CARDIOVASCULAR: Regular rate and rhythm. RESPIRATORY: No accessory muscle use. Clear to auscultation. Breath sounds equal bilaterally. GASTROINTESTINAL: Abdomen soft, mild to moderate right flank pain, nondistended. Hepatic and splenic margins not palpable. No rebound is appreciated. MUSCULOSKELETAL: Extremities without clubbing, cyanosis, or edema. No obvious deformities. NEUROLOGICAL: Awake and alert. No obvious cranial nerve deficits. Motor grossly within normal limits. Five out of 5 muscle strength in the arms and legs. Normal speech. PSYCHIATRIC: Appropriate mood and affect; insight and judgment normal. Data Data Last Documented VS Vital Signs Date Time Temp Pulse Resp B/P (MAP) Pulse Ox O2 Delivery O2 Flow Rate FiO2 08/08/17 19:05 20 08/08/17 16:52 97.9 116 100 Orders Orders Complete Blood Count With Diff (08/08/17 16:59) Comprehensive Metabolic Panel (08/08/17 16:59) Urinalysis - C+S If Indicated (08/08/17 16:59) Ct Abd/Pel W/O Iv Contrast (08/08/17 16:59) Ed Urine Pregnancytest Poc (08/08/17 16:59) Iv Access Insert/Monitor (08/08/17 17:31) Ecg Monitoring (08/08/17 17:31) Oximetry (08/08/17 17:31) Ondansetron Inj (Zofran Inj) (08/08/17 17:45) Sodium Chlor 0.9% 1000 Ml Inj (Ns 1000 M (08/08/17 17:31) Sodium Chloride 0.9% Flush (Ns Flush) (08/08/17 17:45) Morphine Inj (Morphine Inj) (08/08/17 17:45) Tamsulosin (Flomax) (08/08/17 17:45) Urine Culture (08/08/17 17:00) Ceftriaxone Inj (Rocephin Inj) (08/08/17 19:45) Labs Laboratory Tests Test 08/08/17 17:00 08/08/17 17:05 Urine Color YELLOW Urine Turbidity HAZY Urine pH 6.0 Urine Specific [place] 1.029 Urine Protein 30 mg/dL Urine Glucose (UA) NEG mg/dL Urine Ketones NEG mg/dL Urine Occult Blood SMALL Urine Nitrite NEG Urine Bilirubin NEG Urine Urobilinogen 2.0 MG/DL Urine Leukocyte Esterase LARGE Urine RBC 31 /hpf Urine WBC 35 /hpf Urine WBC Clumps RARE Urine Squamous Epithelial Cells 8 /hpf Urine Bacteria OCC /hpf Urine Hyaline Casts 3 /lpf Urine Mucus MANY /lpf Microscopic Urinalysis Comment CULTURE INDICATED White Blood Count 12.8 TH/MM3 Red Blood Count 4.71 MIL/MM3 Hemoglobin 8.8 GM/DL Hematocrit 30.4 % Mean Corpuscular Volume 64.5 FL Mean Corpuscular Hemoglobin 18.7 PG Mean Corpuscular Hemoglobin Concent 29.0 % Red Cell Distribution Width 19.5 % Platelet Count 430 TH/MM3 Mean Platelet Volume 8.3 FL Neutrophils (%) (Auto) 62.9 % Lymphocytes (%) (Auto) 26.3 % Monocytes (%) (Auto) 6.8 % Eosinophils (%) (Auto) 3.2 % Basophils (%) (Auto) 0.8 % Neutrophils # (Auto) 8.0 TH/MM3 Lymphocytes # (Auto) 3.4 TH/MM3 Monocytes # (Auto) 0.9 TH/MM3 Eosinophils # (Auto) 0.4 TH/MM3 Basophils # (Auto) 0.1 TH/MM3 CBC Comment DIFF FINAL Differential Comment Blood Urea Nitrogen 6 MG/DL Creatinine 0.55 MG/DL Random Glucose 95 MG/DL Total Protein 8.4 GM/DL Albumin 4.0 GM/DL Calcium Level 8.5 MG/DL Alkaline Phosphatase 69 U/L Aspartate Amino Transf (AST/SGOT) 18 U/L Alanine Aminotransferase (ALT/SGPT) 31 U/L Total Bilirubin 0.2 MG/DL Sodium Level 140 MEQ/L Potassium Level 3.4 MEQ/L Chloride Level 110 MEQ/L Carbon Dioxide Level 23.9 MEQ/L Anion Gap 6 MEQ/L Estimat Glomerular Filtration Rate 121 ML/MIN MDM Medical Decision Making Medical Screen Exam Complete: Yes Emergency Medical Condition: Yes Medical Record Reviewed: Yes Differential Diagnosis Renal colic. Urinary tract infection. Pyelonephritis. Obstruction. Narrative Course Labs ordered including triage include CBC, CMP, and urinalysis. CT of the abdomen without IV contrast is ordered. IV is ordered, with Zofran 4 mg IV as well as 2 mg morphine IV. Patient is given Flomax 0.4 mg by mouth. Patient is given 1000 mL normal saline bolus. CBC shows slight leukocytosis of 12.8. Hemoglobin is 8.8, hematocrit is 30.4. Chemistries shows potassium slightly low at 3.4, chloride is 110, otherwise unremarkable. Urinalysis shows concentration with a specific gravity 1.029, protein of 30, small occult blood, large leukocyte esterase, there are 31 RBCs per high-power field, 35 cc per high-power field and rare clumping. Occasional bacteria seen. Urine cultures is placed in the lab. Patient is given [address] of the abdomen/pelvis shows: Left-sided obstructive uropathy with mild to moderate hydronephrosis and ureteral dilatation above a 7 mm calculus in the distal left ureter above the bladder. Call is placed to Dr. Lopez, the urologist on-call. Patient is discussed with Dr. Lopez who recommends outpatient treatment with Percocet, Zofran, Bactrim for the UTI, and follow-up with his office or return to emergency department if worse symptoms develop. Diagnosis Primary Impression: UTI (urinary tract infection) Qualified Codes: N30.01 - Acute cystitis with hematuria Additional Impression: Renal lithiasis Referrals: Andrew Lopez DO Patient Instructions: Dysuria (ED), General Instructions, Kidney Stones (ED) Additional Instructions: CT of the abdomen/pelvis shows: Left-sided obstructive uropathy with mild to moderate hydronephrosis and ureteral dilatation above a 7 mm calculus in the distal left ureter above the bladder. Call is placed to Dr. Lopez, the urologist on-call. Patient is discussed with Dr. Lopez who recommends outpatient treatment with Percocet, Zofran, Bactrim for the UTI, and follow-up with his office or return to emergency department if worse symptoms develop. Med/Other Pt SpecificInfo: Prescription(s) given Disposition: DISCHARGE HOME Condition: Stable Jeremy Kang Aug 08, 2017 17:28
[2017-08-08 17:29] LABS: BASOPHIL # 0.1 TH/MM3 (0-0.2); BASOPHIL % 0.8 % (0.0-2.0); EOSINOPHIL # 0.4 TH/MM3 (0-0.4); EOSINOPHIL % 3.2 % (0.0-4.0); HEMATOCRIT 30.4 % (35.0-46.0); HEMOGLOBIN 8.8 GM/DL (11.6-15.3); LYMPH % 26.3 % (9.0-44.0); LYMPHOCYTE # 3.4 TH/MM3 (1.0-4.8); MEAN CELL VOLUME 64.5 FL (80.0-100.0); MEAN CORPUSCULAR HEMOGLOBIN 18.7 PG (27.0-34.0); MEAN PLATELET VOLUME 8.3 FL (7.0-11.0); MONO % 6.8 % (0.0-8.0); MONOCYTE # 0.9 TH/MM3 (0-0.9); NEUT % 62.9 % (16.0-70.0); PLATELET COUNT 430 TH/MM3 (150-450); RED BLOOD COUNT 4.71 MIL/MM3 (4.00-5.30); RED CELL DISTRIBUTION WIDTH 19.5 % (11.6-17.2); WHITE BLOOD COUNT 12.8 TH/MM3 (4.0-11.0)
[2017-08-08] MEDS ORDERED: SODIUM CHLOR 0.9% 1000 ML INJ 1,000 ML IV SCH (17:31)
[2017-08-08 17:42] LABS: BACTERIA, URINE OCC /hpf; BILIRUBIN, URINE NEG (NEG); BLOOD, URINE SMALL (NEG); GLUCOSE,URINE NEG (NEG); HYALINE CAST, URINE 3 /lpf (RARE); KETONE, URINE NEG (NEG); MUCUS URINE MANY /lpf (OCC); NITRITE,URINE NEG (NEG); SQUAMOUS EPITHELIAL CELL URINE 8 /hpf (0-5); URINE COLOR YELLOW (YELLW/STRAW); URINE LEUKOCYTE ESTERASE LARGE (NEG); WHITE BLOOD CELL CLUMPS RARE
[2017-08-08] MEDS ORDERED: MORPHINE SULFATE 2 MG/ML INJ IV PUSH ONE (17:45)
[2017-08-08] MEDS ORDERED: TAMSULOSIN HCL 0.4 MG CAP PO ONE (17:45)
[2017-08-08] MEDS ORDERED: ONDANSETRON HCL 4 MG/2 ML VIAL IVP ONE (17:45)
[2017-08-08] MEDS ORDERED: SODIUM CHLORIDE 0.9% FLUSH 10 ML FLUSH IV FLUSH PRN (17:45)
[2017-08-08 17:58] LABS: ALT (GPT) 31 U/L (10-53); AST (GOT) 18 U/L (15-37); BICARBONATE 23.9 MEQ/L (21.0-32.0); BLOOD UREA NITROGEN 6 MG/DL (7-18); CALCIUM 8.5 MG/DL (8.5-10.1); CHLORIDE 110 MEQ/L (98-107); CREATININE 0.55 MG/DL (0.50-1.00); GLOMERULAR FILTRATION RATE 121 ML/MIN (>89); GLUCOSE,RANDOM 95 MG/DL (74-106); SODIUM (NA) 140 MEQ/L (136-145)
[2017-08-08 18:00] LABS: ALKALINE PHOSPHATASE 69 U/L (45-117); TOTAL BILIRUBIN ADULT 0.2 MG/DL (0.2-1.0); TOTAL PROTEIN 8.4 GM/DL (6.4-8.2)
[2017-08-08 19:05] VITALS: RESP 20
[2017-08-08] MEDS ORDERED: cefTRIAXone INJ 1,000 MG in SODIUM CHLORIDE 0.9% INJ 100 ML IV ONE (19:45)
--- NOTE | 2017-08-08 19:48 | RADRPT ---
EXAM DATE/TIME: 08/08/2017 19:32 [facility] COMPARISON: No previous studies available for comparison. INDICATIONS : Left flank abdomen pain with nausea. ORAL CONTRAST: No oral contrast ingested. RADIATION DOSE: 19.19 CTDIvol (mGy) MEDICAL HISTORY : Renal calculi. Cardiovascular disease Hypertension. SURGICAL HISTORY : Cholecystectomy. ENCOUNTER: Initial ACUITY: 1 day PAIN SCALE: 8/10 LOCATION: Left flank TECHNIQUE: Volumetric scanning of the abdomen and pelvis was performed. Using automated exposure control and ad justment of the mA and/or kV according to patient size, radiation dose was kept as low as reasonably achievable to obtain optimal diagnostic quality images. DICOM format image data is available electro nically for review and comparison. FINDINGS: Limited bases are clear. No acute findings in the liver, spleen, adrenals pancreas. Previous cholecys tectomy. Right kidney unremarkable. Tiny upper pole left renal calculi. There is mild to moderate left-sided hydronephrosis above a 7 mm calculus in the distal left ureter a denis the bladder. No bladder calculi. Incidental note made of intrauterine device. CONCLUSION: 1. Left-sided obstructive uropathy with mild to moderate hydronephrosis and ureteral dilatation above a 7 mm calculus in the distal left ureter above the bladder. Jay Taylor MD on August 08, 2017 at 19:43 Board Certified Radiologist. This report was verified electronically.
[2017-08-08] MEDS ORDERED: BACT800T5 PO (20:08)
[2017-08-08] MEDS ORDERED: PERC5TAB12 PO (20:08)
[2017-08-08] MEDS ORDERED: PROM25TA10 PO (20:08)
[2017-08-08] MEDS ORDERED: oxyCODONE/ACETAMINOPHEN 10 MG/325 MG TAB PO ONE (20:15)
[2017-08-08] MEDS ORDERED: ONDANSETRON HCL 4 MG/2 ML VIAL IV PUSH ONE (20:15)
[2017-08-08 20:35] VITALS: RESP 20
== END 2017-08-08 21:06 | disposition home or self-care (01) ==
LOC: NEPC 16:49
DX: N39.0 Urinary tract infection, site not specified (principal); N13.2 Hydronephrosis with renal and ureteral calculous obstruction; D72.829 Elevated white blood cell count, unspecified; F41.9 Anxiety disorder, unspecified; I10 Essential (primary) hypertension; K21.9 Gastro-esophageal reflux disease without esophagitis; F17.200 Nicotine dependence, unspecified, uncomplicated; Z86.73 Personal history of transient ischemic attack (TIA), and cerebral infarction without residual deficits; Z87.442 Personal history of urinary calculi
CPT/HCPCS: 74176; 80053; 81001; 84703; 85025; 87086; 96365; 96375; 96376; 99285; J0696; J2270; J2405; J7030

== ENCOUNTER 2017-10-02 14:33 | Inpatient (IN) | payer SELFPAY ==
[2017-10-02] VITALS (8 sets, daily range): BP systolic 148–214; BP diastolic 68–98; PULSE 57–110; RESP 16–20; TEMP 98.3–98.7; O2SAT 97–100
[~2017-10-02] VITALS: Ht 160 cm; Wt 88.4 kg
[~2017-10-02 14:33] MED LIST changes: -CEPH-460 PO; -CLIN150C14 PO
[2017-10-02] MEDS ORDERED: PANTOPRAZOLE INJ 80 MG in SODIUM CHLORIDE 0.9% INJ 35 ML IV ONE (15:08)
[2017-10-02] MEDS ORDERED: PANTOPRAZOLE INJ 80 MG in SODIUM CHLORIDE 0.9% INJ 100 ML IV SCH (15:08)
[2017-10-02] MEDS ORDERED: SODIUM CHLOR 0.9% 1000 ML INJ 1,000 ML IV SCH (15:08)
--- NOTE | 2017-10-02 15:11 | PD ---
HPI Chief Complaint: GI Complaint Time Seen by Provider: 14:58 Travel History International Travel<30 days: No Contact w/Intl Traveler<30days: No Traveled to known affect area: No History of Present Illness HPI 42yo F with PMH of nephrolithiasis, HTN, GIB here with c/o nausea and vomiting for the last few days. Said it started off having some red blood and then it is now a small amount of black in the vomit. Last vomit around 5am. Pt also with abdominal pain that is more epigastric and left upper abdomen. Pt with diarrhea but no blood in stool. Denies any fever, chest pain, dysuria, hematuria, focal weakness or numbness. Pt took exedrin this morning for migraine and admits to taking NSAID for back pain at times when she knows she is not suppose to. Pt had similar GI bleed in 10/2015 and was seen by Dr. Suarez. Pt had EGD 10/2015 that showed esophagitis, gastritis, duodenitis with no active bleeding. Pt has not follow up with GI as outpatient due to insurance. PFSH Past Medical History Arthritis: No Asthma: No Autoimmune Disease: No Blood Disorders: No Anxiety: Yes Depression: No Heart Rhythm Problems: No Cancer: No Cardiovascular Problems: Yes (htn on meds) High Cholesterol: No Congestive Heart Failure: No COPD: No Cerebrovascular Accident: Yes (tia) Diabetes: No Diminished Hearing: No Endocrine: No Gastrointestinal Disorders: Yes (ulcers) GERD: Yes Genitourinary: Yes Headaches: Yes Hiatal Hernia: No Hypertension: Yes Immune Disorder: No Implanted Vascular Access Dvce: Yes Kidney Stones: Yes Musculoskeletal: Yes Neurologic: Yes Psychiatric: No Reproductive: No Respiratory: No Immunizations Current: Yes Migraines: Yes Renal Failure: No Seizures: No Sleep Apnea: No Thyroid Disease: No Ulcer: Yes ?: Not LMP: 09/15/17 Menopausal: No : 5 Para: 4 Miscarriage: 1 : 1 Dilation and Curettage (D&C): Yes Past Surgical History AICD: No Arteriovenous Shunt: No Body Medical Devices: IUD Cardiac Surgery: No Cholecystectomy: Yes Ear Surgery: No Endocrine Surgery: No Eye Surgery: No Genitourinary Surgery: No Gynecologic Surgery: No Joint Replacement: No Neurologic Surgery: Yes (brain bleed) Oral Surgery: No Pacemaker: No Thoracic Surgery: No Other Surgery: Yes ( lithotripsy) Social History Alcohol Use: No Tobacco Use: Yes (07/17 PPD) Substance Use: No Allergies-Medications (Allergen,Severity, Reaction): Coded Allergies: etodolac (Verified Allergy, Unknown, CHEST PAIN, 10/02/17) acetaminophen (Verified Adverse Reaction, Intermediate, nausea, 10/02/17) amlodipine (Verified Adverse Reaction, Intermediate, CHEST PAIN, 10/02/17) diclofenac (Verified Adverse Reaction, Intermediate, Chest Pain, 10/02/17) propoxyphene (Verified Adverse Reaction, Intermediate, nausea, 10/02/17) *MDRO Multi-Drug Resistant Organism (Verified Adverse Reaction, Unknown, 07/08/17) 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 SKIN: Focused skin assessment warm/dry. HEAD: Atraumatic. Normocephalic. EYES: Pupils equal and round. No scleral icterus. No injection or drainage. ENT: No nasal bleeding or discharge. Mucous membranes pink and moist. NECK: Trachea midline. No JVD. CARDIOVASCULAR: Regular rate and rhythm. No murmur appreciated. RESPIRATORY: No accessory muscle use. Clear to auscultation. Breath sounds equal bilaterally. GASTROINTESTINAL: Abdomen soft,+TTP epigastric, +TTP LUQ. No rebound tenderness or guarding. MUSCULOSKELETAL: No obvious deformities. No clubbing. No cyanosis. No edema. NEUROLOGICAL: Awake and alert. No obvious cranial nerve deficits. Motor grossly within normal limits. Normal speech. PSYCHIATRIC: Appropriate mood and affect; insight and judgment normal. Data Data Last Documented VS Vital Signs Date Time Temp Pulse Resp B/P (MAP) Pulse Ox O2 Delivery O2 Flow Rate FiO2 10/02/17 17:42 80 16 186/90 (122) 100 10/02/17 14:36 98.4 Orders Orders Basic Metabolic Panel (Bmp) (10/02/17 15:08) Complete Blood Count With Diff (10/02/17 15:08) Lipase (10/02/17 15:08) Prothrombin Time / Inr (Pt) (10/02/17 15:08) Act Partial Throm Time (Ptt) (10/02/17 15:08) Urinalysis - C+S If Indicated (10/02/17 15:08) Type And Screen (10/02/17 15:08) Ondansetron Inj (Zofran Inj) (10/02/17 15:15) Sodium Chlor 0.9% 1000 Ml Inj (Ns 1000 M (10/02/17 15:08) Sodium Chloride 0.9... W/Pantoprazole In (10/02/17 15:08) Sodium Chloride 0.9... W/Pantoprazole In (10/02/17 15:08) Clonidine (Catapres) (10/02/17 15:15) Morphine Inj (Morphine Inj) (10/02/17 15:15) Ct Abd/Pel W Iv Contrast(Rout) (10/02/17 ) Morphine Inj (Morphine Inj) (10/02/17 17:00) Iohexol 350 Inj (Omnipaque 350 Inj) (10/02/17 17:23) Admit To Inpatient (10/02/17 ) Vital Signs (Adult) Q4H (10/02/17 18:23) Activity Oob Ad Fang (10/02/17 18:23) Intake + Output ALEXA.QSHIFT (10/02/17 18:23) Sodium Chloride 0.9% Flush (Ns Flush) (10/02/17 18:30) Sodium Chloride 0.9% Flush (Ns Flush) (10/02/17 21:00) Sodium Chlor 0.9% 1000 Ml Inj (Ns 1000 M (10/02/17 20:00) Pantoprazole Inj (Protonix Inj) (10/02/17 21:00) Hgb & Hct (10/02/17 18:23) Hgb & Hct (10/03/17 06:23) Hgb & Hct (10/03/17 18:23) Resp Oxygen Jason C Titrat 1-4 L (10/02/17 ) Consult Gastroenterology (10/02/17 ) Enalaprilat Inj (Vasotec Inj) (10/02/17 18:30) Enalaprilat Inj (Vasotec Inj) (10/02/17 18:30) Clonidine (Catapres) (10/02/17 22:00) Hydroxyzine Pamoate (Vistaril) (10/02/17 21:00) Lorazepam (Ativan) (10/02/17 21:00) Oxycodone-Acetamin 5-325 Mg (Percocet (10/02/17 18:30) Admit Order (Ed Use Only) (10/02/17 18:29) Labs Laboratory Tests Test 10/02/17 15:00 10/02/17 16:15 Prothrombin Time 10.3 SEC Prothromb Time International Ratio 1.0 RATIO Activated Partial Thromboplast Time 20.7 SEC Urine Color YELLOW Urine Turbidity CLEAR Urine pH 6.0 Urine Specific [place] 1.015 Urine Protein NEG mg/dL Urine Glucose (UA) NEG mg/dL Urine Ketones NEG mg/dL Urine Occult Blood TRACE Urine Nitrite NEG Urine Bilirubin NEG Urine Urobilinogen 0.2 MG/DL Urine Leukocyte Esterase LARGE Urine RBC 0-3 /hpf Urine WBC 0-2 /hpf Urine Bacteria RARE /hpf Urine Mucus FEW /lpf Microscopic Urinalysis Comment CULT NOT INDICATED Blood Urea Nitrogen 5 MG/DL Creatinine 0.55 MG/DL Random Glucose 97 MG/DL Calcium Level 8.4 MG/DL Sodium Level 139 MEQ/L Potassium Level 3.5 MEQ/L Chloride Level 113 MEQ/L Carbon Dioxide Level 18.1 MEQ/L Anion Gap 8 MEQ/L Estimat Glomerular Filtration Rate 121 ML/MIN Lipase 196 U/L White Blood Count 9.8 TH/MM3 Red Blood Count 4.34 MIL/MM3 Hemoglobin 7.7 GM/DL Hematocrit 27.1 % Mean Corpuscular Volume 62.3 FL Mean Corpuscular Hemoglobin 17.8 PG Mean Corpuscular Hemoglobin Concent 28.5 % Red Cell Distribution Width 17.3 % Platelet Count 273 TH/MM3 Mean Platelet Volume 8.6 FL Neutrophils (%) (Auto) 67.7 % Lymphocytes (%) (Auto) 22.3 % Monocytes (%) (Auto) 7.6 % Eosinophils (%) (Auto) 1.9 % Basophils (%) (Auto) 0.5 % Neutrophils # (Auto) 6.7 TH/MM3 Lymphocytes # (Auto) 2.2 TH/MM3 Monocytes # (Auto) 0.7 TH/MM3 Eosinophils # (Auto) 0.2 TH/MM3 Basophils # (Auto) 0.0 TH/MM3 CBC Comment AUTO DIFF Differential Comment AUTO DIFF CONFIRMED Ovalocytes 2+ MDM Medical Decision Making Medical Screen Exam Complete: Yes Emergency Medical Condition: Yes Differential Diagnosis Upper GI bleed secondary to gastritis vs. peptic ulcer vs. pancreatitis Narrative Course 42yo F here with c/o upper abdominal pain and hematemesis for a few days. Pt is hypertensive and tachycardic and said she takes clonidine 0.2mg PO TID and is almost due for her secondary dose today. I initially ordered it since she said it is the only medication that she can take for blood pressure because others drops it very quickly. However, since I am giving her morphine for pain , will hold off on clonidine for now. Labs reviewed, no leukocytosis. H/H low at 7.7/27.1. Pt H/H is always low but this is slightly lower than baseline. Lipase normal. BUN low. UA showed large leukocyte. WBC 0-2. Culture not indicated. BP is now 175/76 after morphine. Pt reevaluated and said morphine helped for a little but pain is back. Pt given another dose of morphine. CT a/ p showed uncomplicated colonic diverticulosis. Minimally prominent right ovary which contain cysts. Pt placed on protonix bolus and drip. Pt has been observed in the ED and has not had any episodes of hematemesis here. Hemodynamically stable. Discussed with Dr. Olson and accepted to her service. Diagnosis Primary Impression: Upper GI bleed Admitting Information Admitting Physician Requests: it OdilonVa DO Oct 02, 2017 15:11
[2017-10-02] MEDS ORDERED: ONDANSETRON HCL 4 MG/2 ML VIAL IVP ONE (15:15)
[2017-10-02] MEDS ORDERED: MORPHINE SULFATE 4 MG/ML INJ IV PUSH ONE ×2 (15:15→17:00)
[2017-10-02] MEDS ORDERED: cloNIDine HCL 0.2 MG TAB PO ONE (15:15)
[2017-10-02 15:26] LABS: BILIRUBIN, URINE NEG (NEG); BLOOD, URINE TRACE (NEG); GLUCOSE,URINE NEG (NEG); KETONE, URINE NEG (NEG); NITRITE,URINE NEG (NEG); URINE COLOR YELLOW (YELLW/STRAW); URINE LEUKOCYTE ESTERASE LARGE (NEG)
[2017-10-02 15:35] LABS: MUCUS URINE FEW /lpf (OCC); RBC, URINE 0-3 /hpf (0-3); WBC, URINE 0-2 /hpf (0-5)
[2017-10-02 15:37] LABS: BACTERIA, URINE RARE /hpf
[2017-10-02 15:45] LABS: BICARBONATE 18.1 MEQ/L (21.0-32.0); CALCIUM 8.4 MG/DL (8.5-10.1)
[2017-10-02 15:48] LABS: CREATININE 0.55 MG/DL (0.50-1.00)
[2017-10-02 15:53] LABS: PROTHROMBIN TIME - PATIENT 10.3 SEC (9.8-11.6)
[2017-10-02 16:29] LABS: AUTOMATED NEUTROPHIL # 6.7 TH/MM3 (1.8-7.7); BASOPHIL % 0.5 % (0.0-2.0); EOSINOPHIL # 0.2 TH/MM3 (0-0.4); EOSINOPHIL % 1.9 % (0.0-4.0); HEMATOCRIT 27.1 % (35.0-46.0); HEMOGLOBIN 7.7 GM/DL (11.6-15.3); LYMPH % 22.3 % (9.0-44.0); LYMPHOCYTE # 2.2 TH/MM3 (1.0-4.8); MEAN CELL VOLUME 62.3 FL (80.0-100.0); MEAN CORPUSCULAR HEMOGLOBIN 17.8 PG (27.0-34.0); MEAN PLATELET VOLUME 8.6 FL (7.0-11.0); MONO % 7.6 % (0.0-8.0); MONOCYTE # 0.7 TH/MM3 (0-0.9); NEUT % 67.7 % (16.0-70.0); PLATELET COUNT 273 TH/MM3 (150-450); RED BLOOD COUNT 4.34 MIL/MM3 (4.00-5.30); RED CELL DISTRIBUTION WIDTH 17.3 % (11.6-17.2); WHITE BLOOD COUNT 9.8 TH/MM3 (4.0-11.0)
[2017-10-02 16:36] LABS: MEAN CORPUSCULAR HGB CONC 28.5 % (32.0-36.0)
[2017-10-02 17:10] LABS: OVALOCYTES 2+ (NORMAL)
[2017-10-02] MEDS ORDERED: IOHEXOL 350 MG/ML 10 ML VIAL (for RAD DIAG) IVCONTRAST ONE (17:23)
--- NOTE | 2017-10-02 17:39 | RADRPT ---
EXAM DATE/TIME: 10/02/2017 17:17 [facility] COMPARISON: CT ABDOMEN & PELVIS W/O CONTRAST, July 05, 2017, 20:30. CT ABDOMEN & PELVIS W CONTRAST, February [id number], 19:51. INDICATIONS : Epigastric and left upper quadrant pain. Hematemesis and diarrhea. IV CONTRAST: 90 cc Omnipaque 350 (iohexol) IV ORAL CONTRAST: No oral contrast ingested. RADIATION DOSE: 18.44 CTDIvol (mGy) MEDICAL HISTORY : Cerebrovascular disease. Gastroesophageal reflux disease. Renal calculi.Ulcers. Hypertension. SURGICAL HISTORY : Cholecystectomy. Lithotripsy. ENCOUNTER: Initial ACUITY: 4 - 6 days PAIN SCALE: 6/10 LOCATION: Epigastric TECHNIQUE: Volumetric scanning of the abdomen and pelvis was performed. Using automated exposure control and ad justment of the mA and/or kV according to patient size, radiation dose was kept as low as reasonably achievable to obtain optimal diagnostic quality images. DICOM format image data is available electro nically for review and comparison. FINDINGS: LOWER LUNGS: The visualized lower lungs are clear. LIVER: Homogeneous density without lesion. There is no dilation of the biliary tree. No calcified gallston es. Status post cholecystectomy. SPLEEN: Normal size without lesion. PANCREAS: Within normal limits. KIDNEYS: Normal in size and shape. There is no mass, stone or hydronephrosis. ADRENAL GLANDS: Within normal limits. VASCULAR: There is no aortic aneurysm. BOWEL/MESENTERY: Uncomplicated colonic diverticulosis is noted. No acute diverticulitis is noted. The appendix is norm al. ABDOMINAL WALL: Within normal limits. RETROPERITONEUM: There is no lymphadenopathy. BLADDER: No wall thickening or mass. REPRODUCTIVE: Within normal limits. IUD is identified within the uterus. The right ovary is minimally prominent and measures 3.3 cm in size and contain cysts. INGUINAL: There is no lymphadenopathy or hernia. MUSCULOSKELETAL: Within normal limits for patient age. CONCLUSION: 1. Uncomplicated colonic diverticulosis. 2. Minimally prominent right ovary which contain cysts. Ethan Bryan MD on October 02, 2017 at 17:32 Board Certified Radiologist. This report was verified electronically.
[2017-10-02] MEDS ORDERED: SODIUM CHLORIDE 0.9% FLUSH 10 ML FLUSH IV FLUSH PRN (18:30)
[2017-10-02] MEDS ORDERED: ENALAPRILAT 2.5 MG/2 ML VIAL IV PUSH ONE (18:30)
[2017-10-02] MEDS: ENALAPRILAT 1.25 MG/ML VIAL IV PUSH PRN (19:20)
[2017-10-02] MEDS: oxyCODONE/ACETAMINOPHEN 5 MG/325 MG TAB PO PRN ×2 (19:20→23:29)
[2017-10-02] MEDS: SODIUM CHLOR 0.9% 1000 ML INJ 1,000 ML IV SCH (20:31)
[2017-10-02] MEDS: LORazepam 2 MG TAB PO SCH (21:37)
[2017-10-02] MEDS: PANTOPRAZOLE SODIUM 40 MG VIAL IV PUSH SCH (21:37)
[2017-10-02 21:39] LABS: HEMATOCRIT 25.7 % (35.0-46.0); HEMOGLOBIN 7.5 GM/DL (11.6-15.3)
[2017-10-02] MEDS: SODIUM CHLORIDE 0.9% FLUSH 10 ML FLUSH IV FLUSH SCH (21:39)
[2017-10-02] MEDS: cloNIDine HCL 0.2 MG TAB PO SCH (22:27)
[2017-10-03] VITALS (8 sets, daily range): BP systolic 135–181; BP diastolic 67–100; PULSE 62–79; RESP 18; TEMP 97.9–99; O2SAT 97–99
[2017-10-03] MEDS ORDERED: ZOLPIDEM TARTRATE 5 MG TAB PO ONE (00:30)
[2017-10-03] MEDS: oxyCODONE/ACETAMINOPHEN 5 MG/325 MG TAB PO PRN ×5 (03:58→23:40)
[2017-10-03] MEDS: cloNIDine HCL 0.2 MG TAB PO SCH ×3 (06:05→23:42)
[2017-10-03] MEDS: SODIUM CHLOR 0.9% 1000 ML INJ 1,000 ML IV SCH ×2 (06:05→23:41)
[2017-10-03 07:27] LABS: HEMATOCRIT 24.2 % (35.0-46.0); HEMOGLOBIN 7.3 GM/DL (11.6-15.3)
[2017-10-03] MEDS: PANTOPRAZOLE SODIUM 40 MG VIAL IV PUSH SCH ×2 (09:29→23:42)
[2017-10-03] MEDS: SODIUM CHLORIDE 0.9% FLUSH 10 ML FLUSH IV FLUSH SCH ×2 (09:30→21:00)
[2017-10-03] MEDS: LORazepam 2 MG TAB PO SCH (09:30)
[2017-10-03] MEDS ORDERED: ACETAMINOPHEN 325 MG TAB PO PRN (10:45)
[2017-10-03] MEDS ORDERED: SODIUM CHLOR 0.9% 250 ML INJ 250 ML IV ONE (10:45)
--- NOTE | 2017-10-03 12:25 | HHI.HP ---
[facility]ician No Primary Care Physician Admission Diagnosis Upper GI bleed Diagnoses: Chief Complaint: Abdominal pain Travel History International Travel<30 Days: No Contact w/Intl Traveler <30 Da: No Traveled to Known Affected Are: No History of Present Illness This patient is a 42-year-old female with a history of peptic ulcers, GERD, esophagitis and gastritis and duodenitis by endoscopy done in 2016. Since that time patient has been feeling well however she reports abdominal pain for the last 5 days with 1 day onset of acute bloody emesis. A small amount of blood in black colored vomit. She came to the emergency room for further evaluation and was found to be anemic. She is chronically anemic. Patient says she takes NSAIDs at times and takes an H2 eulalia. Otherwise patient reports her pain is improved since she has been admitted through the emergency room with anemia related to acute blood loss from GI bleeding. Review of Systems Constitutional: DENIES: Diaphoretic episodes, Fatigue, Fever, Weight gain, Weight loss, Chills, Dizziness, Change in appetite, Night Sweats Endocrine: DENIES: Abnorml menstrual pattern, Heat/cold intolerance, Polydipsia , Polyuria, Polyphagia Eyes: DENIES: Blurred vision, Diplopia, Eye inflammation, Eye pain, Vision loss , Photosensitivity, Double Vision Ears, nose, mouth, throat: DENIES: Tinnitus, Hearing loss, Vertigo, Nasal discharge, Oral lesions, Throat pain, Hoarseness, Ear Pain, Running Nose, Epistaxis, Sinus Pain, Toothache, Odynophagia Respiratory: DENIES: Apneas, Cough, Snoring, Wheezing, Hemoptysis, Sputum production, Shortness of breath Cardiovascular: DENIES: Chest pain, Palpitations, Syncope, Dyspnea on Exertion , PND, Lower Extremity Edema, Orthopnea, Claudication Gastrointestinal: COMPLAINS OF: Abdominal pain, Nausea, Vomiting, DENIES: Black stools, Bloody stools, Constipation, Diarrhea, Difficulty Swallowing, Anorexia Genitourinary: DENIES: Abnormal vaginal bleeding, Dysmenorrhea, Dyspareunia, Sexual dysfunction, Urinary frequency, Urinary incontinence, Urgency, Hematuria , Dysuria, Nocturia, Vaginal discharge Musculoskeletal: DENIES: Joint pain, Muscle aches, Stiffness, Joint Swelling, Back pain, Neck pain Integumentary: DENIES: Abnormal pigmentation, Pruritus, Rash, Nail changes, Breast masses, Breast skin changes, Nipple discharge Hematologic/lymphatic: DENIES: Bruising, Lymphadenopathy Immunologic/allergic: DENIES: Eczema, Urticaria Neurologic: DENIES: Abnormal gait, Headache, Localized weakness, Paresthesias, Seizures, Speech Problems, Tremor, Poor Balance Past Family Social History Past Medical History Recurrent GI bleeding with poor adherence to medical treatment plan Hypertension Renal stone Past Surgical History Cholecystectomy Brain surgery Lithotripsy Reported Medications Reviewed in the EMR, patient has not been taking Vistaril, Ativan or Percocet she has not followed up with any doctors Allergies: Coded Allergies: etodolac (Verified Allergy, Unknown, CHEST PAIN, 10/02/17) acetaminophen (Verified Adverse Reaction, Intermediate, nausea, 10/02/17) amlodipine (Verified Adverse Reaction, Intermediate, CHEST PAIN, 10/02/17) diclofenac (Verified Adverse Reaction, Intermediate, Chest Pain, 10/02/17) propoxyphene (Verified Adverse Reaction, Intermediate, nausea, 10/02/17) Active Ordered Medications Reviewed in the EMR Family History Mother from COPD and father from coronary disease Social History Patient smokes half pack a day No alcohol Lives with family Physical Exam Vital Signs Vital Signs Date Time Temp Pulse Resp B/P (MAP) Pulse Ox O2 Delivery O2 Flow Rate FiO2 10/03/17 08:00 98.1 62 18 135/71 (92) 97 10/02/17 22:21 10/02/17 22:17 98.3 57 20 148/68 (94) 100 10/02/17 19:26 73 178/81 (113) 10/02/17 19:20 98 21 10/02/17 19:17 98.7 76 18 184/88 (120) 99 Room Air 10/02/17 17:42 80 16 186/90 (122) 100 10/02/17 17:00 77 16 175/76 (109) 99 10/02/17 15:30 76 16 169/83 (111) 99 10/02/17 14:36 98.4 110 18 214/98 (136) 97 Physical Exam GENERAL: This is a well-nourished, well-developed patient, in no apparent distress. SKIN: No rashes, ecchymoses or lesions. Cool and dry. HEAD: Atraumatic. Normocephalic. No temporal or scalp tenderness. EYES: Pupils equal round and reactive. Extraocular motions intact. No scleral icterus. No injection or drainage. ENT: Nose without bleeding, purulent drainage or septal hematoma. Throat without erythema, tonsillar hypertrophy or exudate. Uvula midline. Airway patent. NECK: Trachea midline. No JVD or lymphadenopathy. Supple, nontender, no meningeal signs. CARDIOVASCULAR: Regular rate and rhythm without murmurs, gallops, or rubs. RESPIRATORY: Clear to auscultation. Breath sounds equal bilaterally. No wheezes , rales, or rhonchi. GASTROINTESTINAL: Abdomen soft, non-tender, nondistended. No hepato-splenomegaly , or palpable masses. No guarding. MUSCULOSKELETAL: Extremities without clubbing, cyanosis, or edema. No joint tenderness, effusion, or edema noted. No calf tenderness. Negative Homans sign bilaterally. NEUROLOGICAL: Awake and alert. Cranial nerves II through XII intact. Motor and sensory grossly within normal limits. Five out of 5 muscle strength in all muscle groups. Normal speech. Laboratory Laboratory Tests Test 10/02/17 15:00 10/02/17 16:15 10/02/17 21:00 10/03/17 07:16 Prothrombin Time 10.3 Prothromb Time International Ratio 1.0 Activated Partial Thromboplast Time 20.7 Urine Color YELLOW Urine Turbidity CLEAR Urine pH 6.0 Urine Specific [place] 1.015 Urine Protein NEG Urine Glucose (UA) NEG Urine Ketones NEG Urine Occult Blood TRACE Urine Nitrite NEG Urine Bilirubin NEG Urine Urobilinogen 0.2 Urine Leukocyte Esterase LARGE Urine RBC 0-3 Urine WBC 0-2 Urine Bacteria RARE Urine Mucus FEW Microscopic Urinalysis Comment CULT NOT INDICATED Blood Urea Nitrogen 5 Creatinine 0.55 Random Glucose 97 Calcium Level 8.4 Sodium Level 139 Potassium Level 3.5 Chloride Level 113 Carbon Dioxide Level 18.1 Anion Gap 8 Estimat Glomerular Filtration Rate 121 Lipase 196 White Blood Count 9.8 Red Blood Count 4.34 Hemoglobin 7.7 7.5 7.3 Hematocrit 27.1 25.7 24.2 Mean Corpuscular Volume 62.3 Mean Corpuscular Hemoglobin 17.8 Mean Corpuscular Hemoglobin Concent 28.5 Red Cell Distribution Width 17.3 Platelet Count 273 Mean Platelet Volume 8.6 Neutrophils (%) (Auto) 67.7 Lymphocytes (%) (Auto) 22.3 Monocytes (%) (Auto) 7.6 Eosinophils (%) (Auto) 1.9 Basophils (%) (Auto) 0.5 Neutrophils # (Auto) 6.7 Lymphocytes # (Auto) 2.2 Monocytes # (Auto) 0.7 Eosinophils # (Auto) 0.2 Basophils # (Auto) 0.0 CBC Comment AUTO DIFF Differential Comment AUTO DIFF CONFIRMED Ovalocytes 2+ Result Diagram: 10/03/17 0716 10/02/17 1500 Caprini VTE Risk Assessment Caprini VTE Risk Assessment: Mod/High Risk (score >= 2) VTE Pharm Contraindication: High risk for bleeding Caprini Risk Assessment Model Point Value = 1 Point Value = 2 Point Value = 3 Point Value = 5 Age 41-60 Minor surgery BMI > 25 kg/m2 Swollen legs Varicose veins or History of unexplained or recurrent spontaneous Oral contraceptives or hormone replacement Sepsis (< 1 month) Serious lung disease, including pneumonia (< 1 month) Abnormal pulmonary function Acute myocardial infarction Congestive heart failure (< 1 month) History of inflammatory bowel disease Medical patient at bed rest Age 61-74 Arthroscopic surgery Major open surgery (> 45 min) Laparoscopic surgery (> 45 min) Malignancy Confined to bed (> 72 hours) Immobilizing plaster cast Central venous access Age >= 75 History of VTE Family history of VTE Factor V Leiden Prothrombin [id number] Lupus anticoagulant Anticardiolipin antibodies Elevated serum homocysteine Heparin-induced thrombocytopenia Other congenital or acquired thrombophilia Stroke (< 1 month) Elective arthroplasty Hip, pelvis, or leg fracture Acute spinal cord injury (< 1 month) Prophylaxis Regimen Total Risk Factor Score Risk Level Prophylaxis Regimen 0-1 Low Early ambulation 2 Moderate Order ONE of the following: *Sequential Compression Device (SCD) *Heparin 5000 units SQ BID 3-4 Higher Order ONE of the following medications: *Heparin 5000 units SQ TID *Enoxaparin/Lovenox 40 mg SQ daily (WT < 150 kg, CrCl > 30 mL/min) *Enoxaparin/Lovenox 30 mg SQ daily (WT < 150 kg, CrCl > 10-29 mL/min) *Enoxaparin/Lovenox 30 mg SQ BID (WT < 150 kg, CrCl > 30 mL/min) AND/OR *Sequential Compression Device (SCD) 5 or more Highest Order ONE of the following medications: *Heparin 5000 units SQ TID (Preferred with Epidurals) *Enoxaparin/Lovenox 40 mg SQ daily (WT < 150 kg, CrCl > 30 mL/min) *Enoxaparin/Lovenox 30 mg SQ daily (WT < 150 kg, CrCl > 10-29 mL/min) *Enoxaparin/Lovenox 30 mg SQ BID (WT < 150 kg, CrCl > 30 mL/min) AND *Sequential Compression Device (SCD) Assessment and Plan Problem List: (1) Anemia due to acute blood loss ICD Code: D62 - Anemia due to acute blood loss Status: Acute Plan: Patient's hemoglobin is 7.3 and patient will benefit from blood transfusion due to complaint shortness of breath and lightheadedness and weakness. Follow-up with GI (2) GI bleed ICD Code: K92.2 - GI bleed Status: Acute Plan: N.p.o. for now for possible upper endoscopy GI consult appreciated (3) Hypertension ICD Code: I10 - Essential (primary) hypertension Plan: Resume home clonidine Physician Certification 2 Midnight Certification Type: Admission for Inpatient Services Order for Inpatient Services The services are ordered in accordance with Medicare regulations or non- Medicare payer requirements, as applicable. In the case of services not specified as inpatient-only, they are appropriately provided as inpatient services in accordance with the 2-midnight benchmark. Estimated LOS (days): 2 2 days is the estimated time the patient will need to remain in the hospital, assuming treatment plan goals are met and no additional complications. Post-Hospital Plan: Home Allison Olson MD Oct 03, 2017 12:25
[2017-10-03] MEDS ORDERED: LACTATED RINGER'S 1000 ML IV PRN (13:30)
[2017-10-03] MEDS ORDERED: CHLORHEXIDINE GLUCONATE 2 % 1 PACK (2 CLOTHS) TOPICAL PRN (13:30)
[2017-10-03] MEDS ORDERED: POVIDONE IODINE 5% (ANTISEPSIS KIT) 4 APPLICATIONS EACH NARE PRN (13:30)
[2017-10-03] MEDS ORDERED: METOPROLOL TARTRATE 25 MG TAB PO PRN (13:30)
[2017-10-03] MEDS ORDERED: SODIUM CHLORID 0.9% 500 ML IV PRN (13:30)
--- NOTE | 2017-10-03 14:13 | PD.PROCEDR ---
GI Procedure PROCEDURE PERFORMED EGD with biopsy, dilation of esophageal stricture INDICATION FOR PROCEDURE Anemia midepigastric discomfort, reflux symptoms PROCEDURE: The procedure, risks and benefits were discussed with Ms. Saldivar and informed consent was obtained. Anesthesia sedated her with Diprivan. She was placed in the left lateral decubitus position. EGD: The Pentax videoscope was introduced through the oropharynx and advanced to the second portion of the duodenum under direct visualization. Retroflexion was performed in the stomach. FINDINGS: Distal esophageal stricture status post dilation with savory guidewire size 17 mm Moderate gastritis biopsy was done from the antrum Normal otherwise ESTIMATED BLOOD LOSS: None SPECIMENS REMOVED: Antrum Distal esophagus COMPLICATIONS: None IMPRESSION: Distal esophageal stricture status post dilation with savory guidewire size 17 mm Moderate gastritis biopsy was done from the antrum Normal otherwise PLAN: No NSAIDs Protonix 40 mg daily Chew food well Consider hematology consult Saulo Pathak MD Oct 03, 2017 14:13
--- NOTE | 2017-10-03 14:57 | MB ---
cc: Saulo Pathak MD DATE: 10/03/2017 DATE OF : 1975 REFERRING PHYSICIAN: Dr. Olson REASON FOR REFERRAL: Abdominal pain and GI bleed. Thank you for the consultation. HISTORY OF PRESENT ILLNESS: This is a pleasant 42-year-old lady who has a history of known peptic ulcer disease, reflux symptoms and esophagitis, duodenitis on upper endoscopy in 2016. She was there because of anemia. She also had a colonoscopy at that time. Dr. Suarez scoped her. The patient came in complaining of abdominal discomfort for about 4-5 days with a bloody emesis and had coffee ground emesis to follow that. The Patient had retching. She denies any more vomiting. She has known chronic anemia. She takes NSAIDs but she also takes H2 eulalia. The patient denied any other complaint. No hematochezia. No diarrhea or constipation. REVIEW OF SYSTEMS: All 12-points negative except HPI. PAST MEDICAL HISTORY: Significant for GI bleed, hypertension, kidney stone. PAST SURGICAL HISTORY: The patient had lithotripsy. brain surgery questionable type, cholecystectomy. MEDICATIONS: Reviewed in the chart. ALLERGIES: MULTIPLE, also reviewed in the chart. FAMILY HISTORY: Significant for COPD, coronary artery disease. SOCIAL HISTORY: 1. Positive for half pack daily smoking. No alcohol. No drugs. PHYSICAL EXAMINATION: GENERAL: Alert, oriented, in no acute distress. VITAL SIGNS: Stable. HEENT: Pupils round, reactive to light. NECK: Supple. CHEST: Clear to auscultation and percussion. CARDIAC: Regular rate and rhythm. No murmur or gallop. ABDOMEN: Soft, nondistended, nontender at this time. Positive bowel sounds. No hepatosplenomegaly. EXTREMITIES: No edema, clubbing or cyanosis. No abnormality with range of motion. NEUROLOGIC: Alert, oriented. No focal abnormality. PSYCHOLOGIC: Appropriate. LABORATORY DATA: White count 9.8, hemoglobin 7.7, platelet 273. INR 1.0. Chemistry: BUN 5, creatinine 0.55. CT scan was unremarkable, except some diverticulosis and ovaries which have some cysts. ASSESSMENT AND PLAN: 1. A 42-year-old lady with abdominal discomfort, history of peptic ulcer disease, reflux symptoms and hematemesis. The patient will need upper endoscopy. We will plan on doing this today. I do think we need to do a colonoscopy because her anemia is chronic and she had a colonoscopy 2 years ago. She is also young and she denies any rectal bleeding. 2. If the endoscopy is negative, I would recommend capsule endoscopy as an outpatient. 3. Further plan depending on the endoscopy. MD IDANIA Du/LESLIE , 02:29 PM , 02:55 PM
[2017-10-03] MEDS: ENALAPRILAT 1.25 MG/ML VIAL IV PUSH PRN (19:00)
[2017-10-03 21:17] LABS: % SATURATION IRON PROFILE 9.5 % (20-50); IRON (FE) 47 MCG/DL (50-170); TOTAL IRON BINDING CAPACITY 494 MCG/DL (250-450)
[2017-10-04 01:07] VITALS: BP 201/100; PULSE 82; RESP 16; TEMP 98.1; O2SAT 97
[2017-10-04] MEDS ORDERED: ZOLPIDEM TARTRATE 5 MG TAB PO ONE (01:15)
[2017-10-04] MEDS: LORazepam 2 MG TAB PO PRN ×2 (01:23→10:41)
[2017-10-04] MEDS: ENALAPRILAT 1.25 MG/ML VIAL IV PUSH PRN (01:25)
[2017-10-04] MEDS: SODIUM CHLOR 0.9% 1000 ML INJ 1,000 ML IV SCH ×2 (01:30→12:00)
[2017-10-04] MEDS: oxyCODONE/ACETAMINOPHEN 5 MG/325 MG TAB PO PRN ×3 (04:13→12:59)
[2017-10-04 04:25] VITALS: BP 144/84; PULSE 72
[2017-10-04] MEDS: cloNIDine HCL 0.2 MG TAB PO SCH ×2 (06:16→12:58)
[2017-10-04 08:00] VITALS: BP 161/79; PULSE 69; RESP 18; TEMP 98.4; O2SAT 98
[2017-10-04] MEDS: PANTOPRAZOLE SODIUM 40 MG VIAL IV PUSH SCH (09:04)
[2017-10-04] MEDS: SODIUM CHLORIDE 0.9% FLUSH 10 ML FLUSH IV FLUSH SCH (09:04)
--- NOTE | 2017-10-04 11:37 | HHI.DCPOC ---
Discharge Care Plan Diagnosis: (1) Gastritis Goals to Promote Your Health * To prevent worsening of your condition and complications * To maintain your health at the optimal level Directions to Meet Your Goals Take your medications as prescribed Follow your dietary instruction Follow activity as directed Keep your appointments as scheduled Take your immunizations and boosters as scheduled If your symptoms worsen call your PCP, if no PCP go to Urgent Care Center or Emergency Room Smoking is Dangerous to Your Health. Avoid second hand smoke Call the 24-hour hour crisis hotline for domestic abuse at Allison Olson MD Oct 04, 2017 11:37
--- NOTE | 2017-10-04 11:39 | HHI.DS ---
Discharge Summary Admission Date Oct 02, 2017 at 18:31 Discharge Date: Oct 04, 2017 Admitting Diagnosis Upper GI bleed (1) Anemia due to acute blood loss ICD Code: D62 - Anemia due to acute blood loss Status: Acute (2) GI bleed ICD Code: K92.2 - GI bleed Status: Acute (3) Hypertension ICD Code: I10 - Essential (primary) hypertension Procedures Upper endoscopy Brief History - From Admission This patient is a 42-year-old female with a history of peptic ulcers, GERD, esophagitis and gastritis and duodenitis by endoscopy done in 2015. Since that time patient has been feeling well however she reports abdominal pain for the last 5 days with 1 day onset of acute bloody emesis. A small amount of blood in black colored vomit. She came to the emergency room for further evaluation and was found to be anemic. She is chronically anemic. Patient says she takes NSAIDs at times and takes an H2 eulalia. Otherwise patient reports her pain is improved since she has been admitted through the emergency room with anemia related to acute blood loss from GI bleeding. CBC/BMP: 10/03/17 0716 10/02/17 1500 Significant Findings Laboratory Tests Test 10/02/17 15:00 10/02/17 16:15 10/02/17 21:00 10/03/17 07:16 Activated Partial Thromboplast Time 20.7 SEC (24.3-30.1) Urine Leukocyte Esterase LARGE (NEG) Urine Bacteria RARE /hpf (NONE) Urine Mucus FEW /lpf (OCC) Blood Urea Nitrogen 5 MG/DL (7-18) Calcium Level 8.4 MG/DL (8.5-10.1) Chloride Level 113 MEQ/L (98-107) Carbon Dioxide Level 18.1 MEQ/L (21.0-32.0) Hemoglobin 7.7 GM/DL (11.6-15.3) 7.5 GM/DL (11.6-15.3) 7.3 GM/DL (11.6-15.3) Hematocrit 27.1 % (35.0-46.0) 25.7 % (35.0-46.0) 24.2 % (35.0-46.0) Mean Corpuscular Volume 62.3 FL (80.0-100.0) Mean Corpuscular Hemoglobin 17.8 PG (27.0-34.0) Mean Corpuscular Hemoglobin Concent 28.5 % (32.0-36.0) Red Cell Distribution Width 17.3 % (11.6-17.2) Ovalocytes 2+ (NORMAL) Test 10/03/17 19:50 Iron Level 47 MCG/DL (50-170) Total Iron Binding Capacity 494 MCG/DL (250-450) Percent Iron Saturation 9.5 % (20-50) Imaging Last Impressions Abdomen/Pelvis CT 10/02/17 0000 Signed Impressions: Service Date/Time: September 17:17 - CONCLUSION: 1. Uncomplicated colonic diverticulosis. 2. Minimally prominent right ovary which contain cysts. Ethan Bryan MD PE at Discharge GENERAL: This is a well-nourished, well-developed patient, in no apparent distress. CARDIOVASCULAR: Regular rate and rhythm without murmurs, gallops, or rubs. RESPIRATORY: Clear to auscultation. Breath sounds equal bilaterally. No wheezes , rales, or rhonchi. GASTROINTESTINAL: Abdomen soft, non-tender, nondistended. Normal active bowel sounds MUSCULOSKELETAL: Extremities without clubbing, cyanosis, or edema. NEURO: Alert & Oriented x4 to person, place, time, situation. Moves all ext x4 Pt update on day of discharge Patient doing well today. Status post 1 unit of packed red blood cells and tolerated this well. Discharge plans were discussed with patient and she is agreeable Hospital Course Patient is a 42-year-old female with recurrent GI bleeding. She did have upper endoscopy done which did show gastritis. Patient also required 1 unit of packed red blood cells which were transfused. Pt Condition on Discharge: Good Discharge Disposition: Discharge Home Discharge Time: <= 30 minutes Discharge Instructions DIET: Follow Instructions for: As Tolerated, No Restrictions Activities you can perform: Regular-No Restrictions Follow up Referrals: PCP Follow-up - 1 Week Continued Medications: Clonidine (Clonidine) 0.2 Mg Tab 0.2 MG PO Q8HR for Blood Pressure Management for 30 Days, #90 TAB 11 Refills Hydroxyzine Pamoate (Vistaril) 50 Mg Cap 100 MG PO BID, CAP 0 Refills Lorazepam (Ativan) 2 Mg Tab 2 MG PO BID for ANXIETY, TAB 0 Refills Oxycodone-Acetaminophen (Percocet) 5-325 mg Tab 1 TAB PO Q4H PRN for PAIN, #12 TAB 0 Refills Ranitidine (Zantac) 150 Mg Tab 150 MG PO BID for Reduce Stomach Acid, #60 TAB 0 Refills Allison Olson MD Oct 04, 2017 11:39
[2017-10-04 12:00] VITALS: BP 193/86; PULSE 80; RESP 18; TEMP 97; O2SAT 96
--- NOTE | 2017-10-04 12:47 | HHI.GIFU ---
GI Follow-up Note Consult Follow-up Subjective: Patient laying in bed comfortably, feeling better .Ready to go home.Tolerating diet well.No nausea, vomiting , melena, hematemesis . States she has menometrorrhagia, heavy vaginal bleeding at times.Takes nsaids for headaches . Unable to have medical care op due to lack of insurance, applying for patient assistance Objective: PHYSICAL EXAMINATION: Vitals signs stable No fever Vital Signs Date Time Temp Pulse Resp B/P (MAP) Pulse Ox O2 Delivery O2 Flow Rate FiO2 10/04/17 12:00 97.0 80 18 193/86 (121) 96 10/04/17 10:04 18 10/04/17 08:00 98.4 69 18 161/79 (106) 98 HEENT: Pupils round and reactive to light; normocephalic; atraumatic; no jaundice. Throat is clear. NECK: Neck is supple, no JVD, no lymphadenopathy. CHEST: Chest is clear to auscultation and percussion. CARDIAC: Regular rate and rhythm with no murmur gallop or rubs. ABDOMEN: Soft, obese ,nondistended, nontender; no hepatosplenomegaly; bowel sounds are present in all four quadrants. EXTREMITIES: No clubbing, cyanosis, or edema. SKIN: Normal; no rash; no jaundice. [employer]: No focal deficits; alert and oriented times three. Available Data (labs, X- Rays, Procedues) : Laboratory Tests Test 10/02/17 15:00 10/02/17 16:15 10/02/17 21:00 10/03/17 07:16 Prothrombin Time 10.3 SEC Prothromb Time International Ratio 1.0 RATIO Activated Partial Thromboplast Time 20.7 SEC Urine Color YELLOW Urine Turbidity CLEAR Urine pH 6.0 Urine Specific Kimper 1.015 Urine Protein NEG mg/dL Urine Glucose (UA) NEG mg/dL Urine Ketones NEG mg/dL Urine Occult Blood TRACE Urine Nitrite NEG Urine Bilirubin NEG Urine Urobilinogen 0.2 MG/DL Urine Leukocyte Esterase LARGE Urine RBC 0-3 /hpf Urine WBC 0-2 /hpf Urine Bacteria RARE /hpf Urine Mucus FEW /lpf Microscopic Urinalysis Comment CULT NOT INDICATED Blood Urea Nitrogen 5 MG/DL Creatinine 0.55 MG/DL Random Glucose 97 MG/DL Calcium Level 8.4 MG/DL Sodium Level 139 MEQ/L Potassium Level 3.5 MEQ/L Chloride Level 113 MEQ/L Carbon Dioxide Level 18.1 MEQ/L Anion Gap 8 MEQ/L Estimat Glomerular Filtration Rate 121 ML/MIN Lipase 196 U/L White Blood Count 9.8 TH/MM3 Red Blood Count 4.34 MIL/MM3 Hemoglobin 7.7 GM/DL 7.5 GM/DL 7.3 GM/DL Hematocrit 27.1 % 25.7 % 24.2 % Mean Corpuscular Volume 62.3 FL Mean Corpuscular Hemoglobin 17.8 PG Mean Corpuscular Hemoglobin Concent 28.5 % Red Cell Distribution Width 17.3 % Platelet Count 273 TH/MM3 Mean Platelet Volume 8.6 FL Neutrophils (%) (Auto) 67.7 % Lymphocytes (%) (Auto) 22.3 % Monocytes (%) (Auto) 7.6 % Eosinophils (%) (Auto) 1.9 % Basophils (%) (Auto) 0.5 % Neutrophils # (Auto) 6.7 TH/MM3 Lymphocytes # (Auto) 2.2 TH/MM3 Monocytes # (Auto) 0.7 TH/MM3 Eosinophils # (Auto) 0.2 TH/MM3 Basophils # (Auto) 0.0 TH/MM3 CBC Comment AUTO DIFF Differential Comment AUTO DIFF CONFIRMED Ovalocytes 2+ Test 10/03/17 19:50 Iron Level 47 MCG/DL Total Iron Binding Capacity 494 MCG/DL Percent Iron Saturation 9.5 % ASSESSMENT/PLAN: gi bleeding secondary gastritis iron deficiency [id number]/pharmacist in charge eval op esophageal stricture-s/p dilatation-chew food weel, antireflux measures, ranitidine -cannot afford ppi Recommendations ok to dc home from gi point fu gi in 4 weeks continue Ranitidine 150 mg po bid avoid nsaids iron supplementation pharmacist in charge/hematology eval op egd 1 yr unless indicated otherwise gi will sign off It was a pleasure seeing Edna Saldivar. Thank you for this consult. Entered by: Shanthi Wallace MD Oct 04, 2017 12:47
== END 2017-10-04 14:13 | disposition home or self-care (01) | DRG 378 ==
LOC: PHED 14:33 → PHEDA 18:31 → PH3A 22:02
PROVIDERS: ADMIT Hospitalist; ATTEND Hospitalist
PROC: 30233N1 Transfusion of Nonautologous Red Blood Cells into Peripheral Vein, Percutaneous Approach (ICD-10-PCS; principal; 2017-10-02)
PROC: 0DB78ZX Excision of Stomach, Pylorus, Via Natural or Artificial Opening Endoscopic, Diagnostic (ICD-10-PCS; 2017-10-03)
PROC: 0D738ZZ Dilation of Lower Esophagus, Via Natural or Artificial Opening Endoscopic (ICD-10-PCS; 2017-10-03)
DX: K29.51 Unspecified chronic gastritis with bleeding (principal); D62 Acute posthemorrhagic anemia; I10 Essential (primary) hypertension; K22.2 Esophageal obstruction; F41.9 Anxiety disorder, unspecified; K21.9 Gastro-esophageal reflux disease without esophagitis; N92.1 Excessive and frequent menstruation with irregular cycle; F17.210 Nicotine dependence, cigarettes, uncomplicated; Z86.14 Personal history of Methicillin resistant Staphylococcus aureus infection; Z86.73 Personal history of transient ischemic attack (TIA), and cerebral infarction without residual deficits; Z88.6 Allergy status to analgesic agent
CPT/HCPCS: 36430; 74177; 80048; 81001; 83540; 83550; 83690; 85014; 85018; 85025; 85610; 85730; 86850; 86900; 86901; 86920; 88305; 88312; 96365; 96366; 96368; 96375; 96376; C1769; C9113; J2270; J2405; J7030; J7050; J7120; P9016; Q9967